=== PATIENT | female | born 1950 | race Caucasian/White ===

== ENCOUNTER 2019-03-21 14:52 | Observation (INO) ==
[2019-03-21] MEDS ORDERED: IOPAMIDOL 100 ML BOTTLE IV ONE (14:53)
--- NOTE | 2019-03-21 15:11 | Emergency Department Note ---
GI Bleed HPI - General Chief complaint: Rectal Bleed Stated complaint: rectal bleeding, lower abd cramping Time Seen by Provider: 03/21/19 15:00 Source: patient Mode of arrival: ambulatory Limitations: no limitations - History of Present Illness HPI Narrative: 68-year-old female complaining of dominant cramping since yesterday evening approximately 6:30 PM. States the pain has been in the lower abdomen cramping in nature. He had some diarrhea yesterday but there was been no blood there is been no diarrhea today however she try to use the bathroom 1 hour ago and states that there was just blood coming out of the rectal area. She had recently sta rted on an antibiotic, a Z-Corby because of her COPD had just started this just yesterday. She said no history of diverticulitis in the past she is had diverticulosis however. He had a colonoscopy but it has been greater than 5 years. She is on no blood thinners. He does have urinary incontinence which is been a chronic issue she does wear depends all the time. She denies any constipation issues there is been no hematemesis no melena. Denies any urgency frequency or dysuriaPatient states she had bright red blood 1 hour ago - Related Data Home Medications Medication Instructions Recorded Confirmed Albuterol Sulfate [Proair 90 mcg IH PRN PRN 03/27/16 12/04/18 Respiclick] Albuterol Sulfate [Ventolin] 2.5 mg NEB Q4HP PRN 03/27/16 12/04/18 Estradiol [Estrace] 1 mg PO DAILY 03/27/16 12/04/18 Levothyroxine [Synthroid] 25 mcg PO DAILY 03/27/16 12/04/18 Lisinopril [Zestril] 10 mg PO QDAY 03/27/16 12/04/18 QUEtiapine [SEROquel] 150 mg PO QDAY 03/27/16 10/14/18 Venlafaxine [Effexor Xr] 225 mg PO DAILY 03/27/16 12/04/18 montelukast 10 mg tablet 10 mg PO QHS 07/14/17 12/04/18 Medical Marijuana Brownie 1 unit PO QHS 11/18/17 12/04/18 gabapentin 300 mg capsule 300 mg PO QID cap 11/24/17 12/04/18 bupropion HCl SR 100 mg tablet,12 100 mg PO QDAY 04/17/18 12/04/18 hr sustained-release hydromorphone 2 mg tablet 2 mg PO Q6H PRN 04/17/18 12/04/18 Previous Rx's Medication Instructions Recorded fluticasone propionate 50 2 spray INTRANASAL QDAY #16 g 07/14/17 mcg/actuation nasal spray,suspension ipratropium-albuterol 0.5 mg-3 3 ml INHALATION Q6H PRN #180 ml 10/15/17 mg(2.5 mg base)/3 mL nebulization soln budesonide-formoterol HFA 160 2 puff INHALATION BID #10.2 g 10/14/18 mcg-4.5 mcg/actuation aerosol inhaler meclizine 25 mg tablet 25 mg PO BID-TID PRN #30 tab 10/14/18 amoxicillin 500 mg capsule 1,000 mg PO bid #40 cap 12/04/18 clonazePAM [KlonoPIN] 0.5 mg PO HS #10 tab 12/04/18 Allergies Allergy/AdvReac Type Severity Reaction Status Date / Time Diclofenac [From Voltaren] Allergy Severe Anaphylaxis, Verified 03/21/19 14:56 swelling, itching honey Allergy Severe Hives Verified 03/21/19 14:56 ibuprofen Allergy Severe Swelling, Verified 03/21/19 14:56 urticaria, anaphylaxis naproxen Allergy Severe Itching, Verified 03/21/19 14:56 swelling, anaphylaxis morphine Allergy Intermediate Rash Verified 03/21/19 14:56 acetaminophen [From Vicodin] Allergy Mild Rash Verified 03/21/19 14:56 codeine Allergy Mild Hives Verified 03/21/19 14:56 hydrocodone [From Vicodin] Allergy Mild Rash Verified 03/21/19 14:56 metoprolol Allergy Mild Hypotension Verified 03/21/19 14:56 oxycodone [From Percocet] Allergy Mild Rash Verified 03/21/19 14:56 Homatropine Allergy Unknown Unknown Verified 03/21/19 14:56 phenylpropanolamine Allergy Unknown Unknown Verified 03/21/19 14:56 Cocaine Allergy blood Verified 03/21/19 14:56 pressure NSAIDS (Non-Steroidal Allergy Hives Verified 03/21/19 14:56 Anti-Inflamma marionberries Allergy Severe Anaphylaxis Uncoded 12/04/18 13:48 Review of Systems All systems ED: reviewed and negative except as stated. Constitutional: Denies: fever, chills Eyes: Denies: eye pain ENT ED: Denies: ear pain Cardiovascular: Denies: chest pain Respiratory: Denies: shortness of breath Gastrointestinal: Reports: abdominal pain, nausea, vomiting, diarrhea, other Genitourinary: Denies: dysuria, urgency Musculoskeletal: Denies: back pain, joint swelling Past Medical History - Past Medical History PMFSH Narrative: All Active Problems (Last Reviewed 12/04/18 @ 13:48 by Rebecca Sierra PA-C) Postconcussion syndrome (Acute) Cellulitis (Acute) Cat bite (Acute) Gastritis (Acute) Minor head injury (Acute) Occipital scalp laceration (Acute) Acute anxiety (Acute) Encounter for medication refill (Acute) Restless leg syndrome (Acute) Dizziness (Acute) Urinary tract infection (Acute) Cat bite of finger (Acute) Upper respiratory infection (Acute) Bilateral hip pain (Acute) Hammer toes of both feet (Acute) Polyarthralgia (Acute) Ulnar nerve lesion (Chronic) Sleep disturbance (Chronic) Malaise and fatigue (Chronic) Encounter for long-term (current) use of other medications (Chronic) Hyperparathyroidism (Chronic ~1996) Latent tuberculosis (Chronic ~2009) Headache (Chronic) Osteopenia (Chronic) Plantar fasciitis, left (Chronic) Urine incontinence (Chronic) Insulin resistance syndrome (Chronic) Hypertension (Chronic) Asthma (Chronic) Neck pain (Chronic) Impaired fasting glucose (Chronic) Trigeminal neuralgia (Chronic) Depression (Chronic) Hypothyroidism (Chronic) Menopausal syndrome (Chronic) Trochanteric bursitis, right hip (Chronic) Lumbar back pain (Chronic) Lumbar radiculopathy (Chronic) Incontinence, feces (Chronic) Abnormal finding on EKG (Chronic) Mitral regurgitation (Chronic) LVH (left ventricular hypertrophy) (Chronic) Candidiasis (Chronic) Skin infection (Chronic) Rheumatoid arthritis (Chronic) Upper respiratory infection (Acute) Bronchitis (Acute) Asthma with acute exacerbation (Acute) Asthma with exacerbation (Chronic) Low back pain (Chronic) Past Surgical History (Last Reviewed 12/04/18 @ 13:48 by Rebecca Sierra PA-C) History of discectomy (Chronic ~2009) History of parathyroidectomy (Chronic) History of total abdominal hysterectomy (Chronic) Family History (Last Reviewed 12/04/18 @ 13:48 by Rebecca Sierra PA-C) Other No pertinent family history Medical history: Reports: arthritis (Rheumatoid), asthma, COPD, hypertension, migraine, thyroid disease, other Psychiatric history: Reports: no psych history 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 2 C-spine surgeries), tonsillectomy, other (Parathyroid, bladder implant) - Social History smoking status: Former smoker Alcohol use: Reports: Occasionally Drug use: Reports: marijuana Physical Exam Limitations: no limitations General appearance: alert Head: atraumatic, normocephalic Eye: Present: normal appearance, PERRL ENT: normal exam, normal oropharynx, mucous membranes moist Neck: Present: normal inspection, full ROM, trachea midline Chest: Present: normal inspection, symmetric chest wall rise. Absent: tenderness Respiratory: Present: normal lung sounds bilaterally. Absent: respiratory distress, rales/crackles Cardiovascular: Present: regular rate, normal rhythm. Absent: bradycardia, tach ycardia Abdominal: Present: soft, normal bowel sounds. Absent: distention, tenderness, guarding, rebound, rigidity Rectal: Present: normal rectal tone, heme (+) stool, bloody stool Extremities: Present: normal inspection, full ROM. Absent: tenderness Back: Present: normal inspection, full ROM. Absent: tenderness Neurological: Present: alert, oriented X3, CN II-XII intact Psychiatric: Present: normal affect, normal mood Skin: Present: warm, cool, dry Course Vital Signs Temperature 96.8 F L 03/21/19 14:53 Pulse Rate 90 03/21/19 14:53 Respiratory Rate 20 03/21/19 14:53 Blood Pressure 138/79 03/21/19 14:53 Pulse Oximetry (%) 94 03/21/19 14:53 Temperature 96.8 F L 03/21/19 14:53 Pulse Rate 81 03/21/19 19:15 Respiratory Rate 17 03/21/19 19:15 Blood Pressure 190/105 03/21/19 19:01 Pulse Oximetry (%) 94 03/21/19 19:15 GI Bleed - [facility] Narrative Medical decision making narrative: CT was ordered and while coming back from CT she had an episode of wheezing she states she does have a history of asthma and we did give her a DuoNeb which did resolve the wheezing but also gave her Solu-Medrol and Benadryl had no urticaria no flushing she states she gets asthma attacks a lot please it was just due to her asthma. CT showed no evidence of diverticulitisWBC is 9800 the hemoglobin is 13.0 hematocrit 39.3 PT is 12.1 INR 1.0 sodium is 135 potassium 4.1 BUN is 26 the creatinine 1.2 ever function tests were normal. She had a second bowel movement in the ED and did have large amount of blood and clots per Dr. Domínguez contacted and patient to be admitted to hospitalist and he will do the colonoscopy tomorrow.Vital signs have been stable with pulse in the 80s respiratory rate of 15 blood pressure 178/101 pulse ox reading at 97%.. He was given a DuoNeb which did raise her heart rate and blood pressure but her wheezing did resolve. Dr Perdomo consulted and pt will be admitted to observation and colonscopy by Dr Hodges - Lab Data Result diagrams: 03/21/19 15:45 03/21/19 15:45 Lab Results 03/21/19 03/21/19 03/21/19 Range/Units 15:45 15:45 15:45 WBC 9.8 (4.5-11.0) K/mcL RBC 4.28 (4.00-5.20) M/mcL Hgb 13.0 (12.0-15.0) g/dL Hct 39.3 (36.0-48.0) % POC Hct 40.0 (36.0-48.0) % MCV 91.9 (80.0-100.0) fL MCH 30.4 (26.0-34.0) pg MCHC 33.0 (31.0-36.0) g/dL RDW 13.4 (11.5-14.5) % Plt Count 186 (140-440) K/mcL MPV 8.4 (7.4-10.4) fL Gran % 81.2 H (38.0-78.0) % Lymph % (Auto) 7.3 L (15.5-49.0) % [place] % (Auto) 8.6 (1.0-12.0) % Eos % (Auto) 2.5 (0.0-7.0) % Baso % (Auto) 0.4 (0.0-2.0) % Gran # 7.9 (1.8-8.0) K/mcL Lymph # (Auto) 0.7 L (1.5-4.8) K/mcL [place] # (Auto) 0.8 (0.1-0.9) K/mcL Eos # (Auto) 0.2 (0.0-0.7) K/mcL Baso # (Auto) 0 (0.0-0.3) K/mcL POC PT 12.1 (11.9-14.5) sec POC INR 1.0 (0.9-1.2) POC Sodium 135 (133-145) mmol/L Sodium Cancelled POC Potassium 4.1 (3.3-5.1) mmol/L Potassium Cancelled POC Chloride 105 (96-108) mmol/L Chloride Cancelled Carbon Dioxide Cancelled POC Total CO2 20 L (22-30) mmol/L Anion Gap Cancelled POC BUN 26 H (8-23) mg/dl BUN Cancelled Creatinine Cancelled POC Creatinine 1.2 H (0.6-1.1) mg/dl GFR Calculation Cancelled BUN/Creatinine Ratio Cancelled Glucose Cancelled POC Glucose 114 H (70-105) mg/dL Calcium Cancelled POC WB Ioniz Calcium 1.03 L (1.16-1.32) mmol/L Total Bilirubin Cancelled AST Cancelled ALT Cancelled Alkaline Phosphatase Cancelled Total Protein Cancelled Albumin Cancelled Globulin Cancelled Albumin/Globulin Ratio Cancelled Urine Color Urine Appearance Urine pH (5.0-9.0) Ur Specific [place] (1.000-1.035) Urine Protein (NEG) mg/dL Urine Glucose (UA) (NEG) mg/dL Urine Ketones (NEG) mg/dL Urine Occult Blood (<0.03) mg/dL Urine Nitrate (NEG) Urine Bilirubin (NEG) mg/dL Urine Urobilinogen (NEG) mg/dL Ur Leukocyte Esterase (NEG) /uL Urine RBC (0-1) /hpf Urine WBC (0-4) /hpf Ur Squamous Epith Cells (0-4) /hpf Ur Transition Epith Cell (0-2) /hpf Urine Bacteria (0) /hpf Hyaline Casts (0-2) /lpf Other Casts (0) /lpf Ur Culture Indicated? 03/21/19 03/21/19 Range/Units 15:45 16:15 WBC (4.5-11.0) K/mcL RBC (4.00-5.20) M/mcL Hgb (12.0-15.0) g/dL Hct (36.0-48.0) % POC Hct (36.0-48.0) % MCV (80.0-100.0) fL MCH (26.0-34.0) pg MCHC (31.0-36.0) g/dL RDW (11.5-14.5) % Plt Count (140-440) K/mcL MPV (7.4-10.4) fL Gran % (38.0-78.0) % Lymph % (Auto) (15.5-49.0) % [place] % (Auto) (1.0-12.0) % Eos % (Auto) (0.0-7.0) % Baso % (Auto) (0.0-2.0) % Gran # (1.8-8.0) K/mcL Lymph # (Auto) (1.5-4.8) K/mcL [place] # (Auto) (0.1-0.9) K/mcL Eos # (Auto) (0.0-0.7) K/mcL Baso # (Auto) (0.0-0.3) K/mcL POC PT (11.9-14.5) sec POC INR (0.9-1.2) POC Sodium (133-145) mmol/L Sodium 134 POC Potassium (3.3-5.1) mmol/L Potassium 4.1 POC Chloride (96-108) mmol/L Chloride 100 Carbon Dioxide 20 L POC Total CO2 (22-30) mmol/L Anion Gap 14.0 POC BUN (8-23) mg/dl BUN 25 H Creatinine 1.3 H POC Creatinine (0.6-1.1) mg/dl GFR Calculation 42 BUN/Creatinine Ratio Glucose 115 H POC Glucose (70-105) mg/dL Calcium 8.4 L POC WB Ioniz Calcium (1.16-1.32) mmol/L Total Bilirubin 0.6 AST 15 ALT 12 Alkaline Phosphatase 72 Total Protein 6.5 Albumin 3.8 Globulin 2.7 Albumin/Globulin Ratio 1.4 Urine Color Yellow Urine Appearance Hazy Urine pH 5.0 (5.0-9.0) Ur Specific [place] 1.018 (1.000-1.035) Urine Protein Neg (NEG) mg/dL Urine Glucose (UA) Negative (NEG) mg/dL Urine Ketones Neg (NEG) mg/dL Urine Occult Blood 0.2 A (<0.03) mg/dL Urine Nitrate Pos A (NEG) Urine Bilirubin Neg (NEG) mg/dL Urine Urobilinogen Neg (NEG) mg/dL Ur Leukocyte Esterase Neg (NEG) /uL Urine RBC 7 H (0-1) /hpf Urine WBC 2 (0-4) /hpf Ur Squamous Epith Cells 6 H (0-4) /hpf Ur Transition Epith Cell < 1 (0-2) /hpf Urine Bacteria Few A (0) /hpf Hyaline Casts 1 (0-2) /lpf Other Casts Few A (0) /lpf Ur Culture Indicated? 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
[2019-03-21 15:57] LABS: POC Pro Time 12.1 sec (11.9-14.5)
[2019-03-21 15:58] LABS: POC Blood Urea Nitrogen 26 mg/dl (8-23); POC CO2 20 mmol/L (22-30); POC Calcium, Ionized 1.03 mmol/L (1.16-1.32); POC Chloride 105 mmol/L (96-108); POC Creatinine 1.2 mg/dl (0.6-1.1); POC Glucose, Random 114 mg/dL (70-105); POC Potassium 4.1 mmol/L (3.3-5.1); POC Sodium 135 mmol/L (133-145)
[2019-03-21] MEDS ORDERED: 0.9 % SODIUM CHLORIDE 1,000 ML IV ONE ×2 (16:12→18:38)
[2019-03-21 16:21] LABS: Basophils # (Auto) 0 K/mcL (0.0-0.3); Basophils % (Auto) 0.4 % (0.0-2.0); Eosinophils # (Auto) 0.2 K/mcL (0.0-0.7); Eosinophils % (Auto) 2.5 % (0.0-7.0); Granulocytes % (Auto) 81.2 % (38.0-78.0); Hematocrit 39.3 % (36.0-48.0); Lymphocytes # (Auto) 0.7 K/mcL (1.5-4.8); Lymphocytes % (Auto) 7.3 % (15.5-49.0); Mean Cell Volume 91.9 fL (80.0-100.0); Mean Platelet Volume 8.4 fL (7.4-10.4); Monocytes # (Auto) 0.8 K/mcL (0.1-0.9); Monocytes % (Auto) 8.6 % (1.0-12.0); Platelet Count 186 K/mcL (140-440); RBC 4.28 M/mcL (4.00-5.20); Red Cell Distribution Width 13.4 % (11.5-14.5); WBC 9.8 K/mcL (4.5-11.0)
[2019-03-21 16:45] LABS: ALT/SGPT 12 U/l (0-40); AST/SGOT 15 U/l (0-37); Albumin 3.8 gm/dL (3.2-5.2); Albumin/Globulin Ratio 1.4 (1.0-2.3); Alkaline Phosphatase 72 U/L (39-117); Bilirubin,Total 0.6 mg/dL (0.0-1.0); Blood Urea Nitrogen 25 mg/dl (8-23); Calcium 8.4 mg/dl (8.6-10.4); Carbon Dioxide 20 mmol/L (22-30); Chloride 100 mmol/L (96-108); Globulin 2.7 gm/dL (2.2-3.7); Glomerular Filtration Rate 42; Glucose 115 mg/dL (70-105); Potassium 4.1 mmol/L (3.3-5.1); Sodium 134 mmol/L (133-145)
[2019-03-21 17:21] LABS: Appearance,Urine HAZY; Bacteria,Urine FEW /hpf (0); Bilirubin,Urine NEG (NEG); Color,Urine YELLOW; Culture Indicated,Urine NO; Glucose,Urine (UA) NEGATIVE (NEG); Ketones,Urine NEG (NEG); Leukocyte Esterase,Urine NEG /uL (NEG); Nitrate,Urine POS (NEG); Other Casts,Urine FEW /lpf (0); Protein,Urine NEG (NEG); Specific Gravity,Urine 1.018 (1.000-1.035); Urine Blood 0.2 mg/dL (<0.03); Urine Hyaline Cast 1 /lpf (0-2); Urine RBC 7 /hpf (0-1); Urine Squamous Epithelial Cell 6 /hpf (0-4); Urine Transitional Epi Cells < 1 /hpf (0-2); Urine WBC 2 /hpf (0-4); Urobilinogen,Urine NEG (NEG)
[2019-03-21] MEDS ORDERED: IPRATROPIUM/ALBUTEROL 3 ML AMPUL.NEB NEB ONE (18:19)
[2019-03-21] MEDS ORDERED: diphenhydrAMINE 50 MG/ML VIAL IV ONE (18:20)
[2019-03-21] MEDS ORDERED: methylPREDNISolone SOD SUCC 125 MG/2 ML VIAL IV ONE (18:20)
--- NOTE | 2019-03-21 18:35 | Cat Scan Report ---
CLINICAL INFORMATION: Rectal bleeding COMPARISON: None. TECHNIQUE: Following negative enteric contrast, 80 cc of Isovue-300 were injected intravenously, 20 and 60 later, 0.625 mm helical slices were obtained from the mid heart through the subtrochanteric regions. Following reconstruction, 2.5 mm sagittal, coronal and axial reformatted images were processed and reviewed at bone, lung and soft tissue windows. Five minutes later, 0.625 mm helical slices were obtained from the mid heart through the kidneys and viewed at soft tissue windows.The exam was performed using radiation dose optimization techniques including, but not limited to, automated exposure control, adjustment of the mA and/or kV according to patient size and use of iterative reconstruction technique. FINDINGS: Lung bases show no abnormality - no effusion. The visualized heart is normal. Images should the abdomen show minimal fatty change of the liver but no focal lesions. The gallbladder is surgically absent. Common bile duct is normal: The CBD is 5 mm. The 2.6 mm nonobstructing stone inferior calyx of the right kidney - the remaining kidneys, adrenal glands, spleen, pancreas are normal. The aorta is normal in diameter and contour with scattered atherosclerotic plaque. The celiac, SMA, CHARLIE and iliac arteries are branches are widely patent no evidence of thrombus or embolus. No region of angiodysplasia or other focal cause identified for GI blood loss. Images through the pelvis show hysterectomy changes in the urinary bladder is normal. There are multiple sigmoid diverticuli. There is moderate concentric wall thickening of the splenic fracture and entire descending colon with inflammation or edema in the pericolonic fat. The remainder of the transverse, right colon small bowel and stomach are normal. The bone windows show no osseous abnormality IMPRESSION: Moderate concentric wall thickening splenic flexure and descending colon with inflammation or edema in the pericolonic fat. Differential diagnosis includes ischemic bowel disease, infectious or inflammatory bowel disease suggest referral for colonoscopy. Sigmoid diverticulosis, but no evidence of diverticulitis. Interpreted and Authenticated by: Eleazar Carrillo 03/21/19
[2019-03-21] MEDS ORDERED: hydrALAZINE 20 MG/ML VIAL IV PRN ×2 (19:56→20:51)
[2019-03-21] MEDS ORDERED: LABETALOL 5 MG/ML ML IV PRN ×2 (19:56→20:51)
--- NOTE | 2019-03-21 20:00 | Internal Med History&Physical ---
Medical - H&P: [facility] Patient information: Note initiated : 03/21/19 at 7:57 pm Service Date, if different from initiated Date: [] Patient: Raven Collazo a 68 y/o F admitted on for rectal bleeding, lower abd cramping. Chief Complaint: [] History of present illness: Ms. Collazo is a 68 year old F Who is been dealing with a cold with a cough of yellow sputum she went to [facility] and got a Z-Corby. States she has not asthma flare. Has a history of COPD on 4 L oxygen at night. 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 Today she had no another episode of diarrhea and noticed that she had blood clots and her underwear and in the toilet. Came to the ER and had evaluation. Diagnosed with a GI bleed Deandra was contacted. She did have CT of the pelvis with contrast and thereafter she became tachycardic and hypertensive she was given Benadryl and steroids with gradual improvement. No hives. Dr. Liriano plans on scoping her in the morning. She has some nausea but denies any fevers or chills. Abdominal pain is lower quadrant crampy and nonradiating. She feels like she is been dehydrated the past couple days because of her illness. Never had this before. No recent constipation. Review of Systems: Pertinent positives as above. Denies headache/fever/chills/vomiting/chest pain/dyspnea. Remaining 10 point review of system reviewed negative Medical - H&P: [facility] Medical history: Medical History (Last Reviewed 12/04/18 @ 13:48 by Rebecca Sierra PA-C) Bilateral hip pain (Acute) Hammer toes of both feet (Acute) Polyarthralgia (Acute) Ulnar nerve lesion (Chronic) Sleep disturbance (Chronic) Malaise and fatigue (Chronic) Encounter for long-term (current) use of other medications (Chronic) Hyperparathyroidism (Chronic ~1996) Latent tuberculosis (Chronic ~2009) Headache (Chronic) Osteopenia (Chronic) Plantar fasciitis, left (Chronic) Urine incontinence (Chronic) Insulin resistance syndrome (Chronic) Hypertension (Chronic) Asthma (Chronic) Neck pain (Chronic) Impaired fasting glucose (Chronic) Trigeminal neuralgia (Chronic) Depression (Chronic) Hypothyroidism (Chronic) Menopausal syndrome (Chronic) Trochanteric bursitis, right hip (Chronic) Lumbar back pain (Chronic) Lumbar radiculopathy (Chronic) Incontinence, feces (Chronic) Abnormal finding on EKG (Chronic) Mitral regurgitation (Chronic) LVH (left ventricular hypertrophy) (Chronic) Candidiasis (Chronic) Skin infection (Chronic) Rheumatoid arthritis (Chronic) Upper respiratory infection (Acute) Bronchitis (Acute) Asthma with acute exacerbation (Acute) Past Surgical History (Last Reviewed 12/04/18 @ 13:48 by Rebecca Sierra PA-C) History of discectomy (Chronic ~2009) History of parathyroidectomy (Chronic) History of total abdominal hysterectomy (Chronic) Family History (Last Reviewed 12/04/18 @ 13:48 by Rebecca Sierra PA-C) Other Mother had lung cancer Father had emphysema Social History (Last Updated 12/05/18 @ 12:21 by Rebceca Sierra PA-C) Quit smoking 30 years ago drinks 1 to 2 glasses of wine a night lives by herself Medical - H&P: Meds Home Medications Medication Instructions Recorded Confirmed Type Albuterol Sulfate [Proair 90 mcg IH PRN PRN 03/27/16 03/21/19 History Respiclick] Albuterol Sulfate [Ventolin] 2.5 mg NEB Q4HP PRN 03/27/16 03/21/19 History Estradiol [Estrace] 1 mg PO DAILY 03/27/16 03/21/19 History Levothyroxine [Synthroid] 25 mcg PO DAILY 03/27/16 03/21/19 History Lisinopril [Zestril] 10 mg PO QDAY 03/27/16 03/21/19 History QUEtiapine [SEROquel] 150 mg PO QDAY 03/27/16 03/21/19 History Venlafaxine [Effexor Xr] 225 mg PO DAILY 03/27/16 03/21/19 History fluticasone propionate 50 2 spray INTRANASAL QDAY #16 g 07/14/17 03/21/19 Rx mcg/actuation nasal spray,suspension montelukast 10 mg tablet 10 mg PO QHS 07/14/17 03/21/19 History ipratropium-albuterol 0.5 mg-3 3 ml INHALATION Q6H PRN #180 ml 10/15/17 03/21/19 Rx mg(2.5 mg base)/3 mL nebulization soln Medical Marijuana Brownie 1 unit PO QHS 11/18/17 03/21/19 History gabapentin 300 mg capsule 300 mg PO QID cap 11/24/17 03/21/19 History hydromorphone 2 mg tablet 2 mg PO Q6H PRN 04/17/18 03/21/19 History budesonide-formoterol HFA 160 2 puff INHALATION BID #10.2 g 10/14/18 03/21/19 Rx mcg-4.5 mcg/actuation aerosol inhaler meclizine 25 mg tablet 25 mg PO BID-TID PRN #30 tab 10/14/18 03/21/19 Rx clonazePAM [KlonoPIN] 0.5 mg PO HS #10 tab 12/04/18 03/21/19 Rx Allergies Allergy/AdvReac Type Severity Reaction Status Date / Time Diclofenac [From Voltaren] Allergy Severe Anaphylaxis, Verified 03/21/19 14:56 swelling, itching honey Allergy Severe Hives Verified 03/21/19 14:56 ibuprofen Allergy Severe Swelling, Verified 03/21/19 14:56 urticaria, anaphylaxis naproxen Allergy Severe Itching, Verified 03/21/19 14:56 swelling, anaphylaxis morphine Allergy Intermediate Rash Verified 03/21/19 14:56 acetaminophen [From Vicodin] Allergy Mild Rash Verified 03/21/19 14:56 codeine Allergy Mild Hives Verified 03/21/19 14:56 hydrocodone [From Vicodin] Allergy Mild Rash Verified 03/21/19 14:56 metoprolol Allergy Mild Hypotension Verified 03/21/19 14:56 oxycodone [From Percocet] Allergy Mild Rash Verified 03/21/19 14:56 Homatropine Allergy Unknown Unknown Verified 03/21/19 14:56 phenylpropanolamine Allergy Unknown Unknown Verified 03/21/19 14:56 Cocaine Allergy blood Verified 03/21/19 14:56 pressure NSAIDS (Non-Steroidal Allergy Hives Verified 03/21/19 14:56 Anti-Inflamma marionberries Allergy Severe Anaphylaxis Uncoded 12/04/18 13:48 Medical - H&P: Exam - Constitutional Vitals: Temp Pulse Resp BP Pulse Ox 96.8 F L 77 23 H 185/98 98 03/21/19 14:53 03/21/19 19:30 03/21/19 19:30 03/21/19 19:21 03/21/19 19:30 Exam: General: Alert, Awake, No acute Distress Eyes/N/T: EOMI, PEERL, DMM Head/Neck: neck supple, normocephalic atraumatic CV: Mildly tacky but regular, No murmurs, normal s1/s2 Pulm: Mild wheeze on the left expiratory otherwise clear no rhonchi or rales Abd: soft, , +BS x4 tender to palpation lower quadrants Ext: no clubbing/cyanosis/edema Neuro: Alert, no focal deficits, moves all extremities, CN 2-12 grossly intact, symmetrical strength b/l upper/lower, sensations intact b/l upper/lower Skin: warm/dry Medical - H&P: Reslt - Labs CBC & Chem 7: 03/21/19 15:45 03/21/19 15:45 Labs: Short CBC 03/21/19 Range/Units 15:45 WBC 9.8 (4.5-11.0) K/mcL Hgb 13.0 (12.0-15.0) g/dL Hct 39.3 (36.0-48.0) % Plt Count 186 (140-440) K/mcL BMP 03/21/19 03/21/19 15:45 15:45 Sodium Cancelled 134 Potassium Cancelled 4.1 Chloride Cancelled 100 Carbon Dioxide Cancelled 20 L BUN Cancelled 25 H Creatinine Cancelled 1.3 H Glucose Cancelled 115 H Calcium Cancelled 8.4 L Liver Function 03/21/19 03/21/19 Range/Units 15:45 15:45 Total Bilirubin Cancelled 0.6 AST Cancelled 15 ALT Cancelled 12 Alkaline Phosphatase Cancelled 72 Albumin Cancelled 3.8 Urine 03/21/19 Range/Units 16:15 Urine Color Yellow Urine Appearance Hazy Urine pH 5.0 (5.0-9.0) Ur Specific [place] 1.018 (1.000-1.035) Urine Protein Neg (NEG) mg/dL Urine Glucose (UA) Negative (NEG) mg/dL - Impressions CT abdomen pelvis with moderate wall thickening of the splenic flexure descending colon. Medical - H&P: A/P - Narrative A/P Narrative: A: *GI bleed, BRBPR, with abdominal cramping: ?ischemic colitis *Hypertension tachycardia after contrast study: Question allergic reaction *COPD (4L O2@night): *HTN: *Anxiety/depression: *Chronic pain: She says is from her rheumatoid arthritis *Hypothyroidism *SILVINA on CKD III: * P: -Clear liquids, n.p.o. after midnight -IVF -prn BP med -finish home zpak -prn nebs -f/u H&H - -ppx: scd
[2019-03-21] MEDS ORDERED: POLYETHYLENE GLYCOL 3350 17 GM PACKET PO ONE (20:51)
[2019-03-21] MEDS ORDERED: IPRATROPIUM/ALBUTEROL 3 ML AMPUL.NEB NEB PRN (20:51)
[2019-03-21] MEDS ORDERED: HYDROmorphone 2 MG TABLET PO PRN (20:51)
[2019-03-21] MEDS ORDERED: HYDROmorphone 2 MG/ML VIAL IV PRN (20:51)
[2019-03-21] MEDS ORDERED: diphenhydrAMINE 50 MG/ML VIAL IV PRN (20:51)
[2019-03-21] MEDS ORDERED: PANTOPRAZOLE 40 MG VIAL IV SCH (20:51)
[2019-03-21] MEDS ORDERED: MECLIZINE 25 MG TABLET PO PRN (20:51)
[2019-03-21] MEDS ORDERED: ONDANSETRON 4 MG/2 ML VIAL IV PRN (20:51)
[2019-03-21] MEDS ORDERED: PROMETHAZINE 25 MG/ML VIAL IV PRN (20:51)
[2019-03-21] MEDS: GABAPENTIN 300 MG CAPSULE PO SCH (21:36)
[2019-03-21] MEDS: MONTELUKAST 10 MG TABLET PO SCH (21:36)
[2019-03-21] MEDS: clonazePAM 0.5 MG TABLET PO SCH (21:36)
[2019-03-21] MEDS: QUEtiapine 100 MG TABLET PO SCH (21:36)
[2019-03-21] MEDS: SYMBICORT INH SCH (21:39)
[2019-03-21 21:57] LABS: Hematocrit 37.8 % (36.0-48.0); Hemoglobin 12.2 g/dL (12.0-15.0)
[2019-03-21] MEDS: 0.9 % SODIUM CHLORIDE 10 ML SYRINGE IV SCH (21:59)
[2019-03-21] MEDS ORDERED: ESOMEPRAZOLE 40 MG VIAL IV ONE ×2 (22:42→22:44)
[2019-03-21] MEDS ORDERED: AZITHROMYCIN 250 MG TABLET PO ONE (22:43)
[2019-03-21] MEDS ORDERED: 0.9 % SODIUM CHLORIDE 1,000 ML IV SCH (23:50)
[2019-03-22] MEDS: 0.9 % SODIUM CHLORIDE 10 ML SYRINGE IV SCH ×3 (04:31→21:17)
[2019-03-22] MEDS ORDERED: PEG 3350/NA SULF,BICARB,CL/KCL 4,000 ML ORAL.SOL PO ONE (05:30)
[2019-03-22 05:32] LABS: Basophils # (Auto) 0 K/mcL (0.0-0.3); Basophils % (Auto) 0.2 % (0.0-2.0); Eosinophils # (Auto) 0 K/mcL (0.0-0.7); Eosinophils % (Auto) 0 % (0.0-7.0); Granulocytes % (Auto) 94.3 % (38.0-78.0); Hematocrit 36.4 % (36.0-48.0); Hemoglobin 12.1 g/dL (12.0-15.0); Lymphocytes # (Auto) 0.3 K/mcL (1.5-4.8); Lymphocytes % (Auto) 3.4 % (15.5-49.0); Mean Cell Volume 93.1 fL (80.0-100.0); Mean Corpuscular HGB Conc 33.3 g/dL (31.0-36.0); Mean Platelet Volume 8.3 fL (7.4-10.4); Monocytes # (Auto) 0.2 K/mcL (0.1-0.9); Monocytes % (Auto) 2.1 % (1.0-12.0); Platelet Count 153 K/mcL (140-440); RBC 3.91 M/mcL (4.00-5.20); Red Cell Distribution Width 13.3 % (11.5-14.5); WBC 8.6 K/mcL (4.5-11.0)
[2019-03-22 06:09] LABS: ALT/SGPT 10 U/l (0-40); AST/SGOT 14 U/l (0-37); Albumin 3.2 gm/dL (3.2-5.2); Albumin/Globulin Ratio 1.2 (1.0-2.3); Alkaline Phosphatase 64 U/L (39-117); Bilirubin,Direct < 0.2 mg/dL (0.0-0.3); Bilirubin,Total 0.2 mg/dL (0.0-1.0); Blood Urea Nitrogen 16 mg/dl (8-23); Calcium 7.3 mg/dl (8.6-10.4); Carbon Dioxide 19 mmol/L (22-30); Chloride 108 mmol/L (96-108); Globulin 2.7 gm/dL (2.2-3.7); Glomerular Filtration Rate 57; Glucose 168 mg/dL (70-105); Lactate Dehydrogenase 222 U/L (94-250); Phosphorous 3.1 mg/dL (2.7-4.5); Potassium 4.4 mmol/L (3.3-5.1); Sodium 138 mmol/L (133-145); Triglycerides 82 mg/dl (<150); Uric Acid 6.1 mg/dL (2.5-8.0)
[2019-03-22] MEDS: ESOMEPRAZOLE 40 MG VIAL IV SCH ×2 (07:23→17:08)
[2019-03-22] MEDS: LEVOTHYROXINE 25 MCG TABLET PO SCH (07:24)
--- NOTE | 2019-03-22 07:33 | Internal Med Progress Note ---
Medical - PN: Subj Patient information: Note initiated : 03/22/19 at 7:31 am Service Date, if different from initiated Date: [] Patient: Raven Collazo a 68 y/o F admitted on 03/21/19 for rectal bleeding, lower abd cramping. Chief Complaint: [] Interval history: History of present illness: Ms. Collazo is a 68 year old F Who is been dealing with a cold with a cough of yellow sputum she went to [facility] and got a Z-[place]. States she has not asthma flare. Has a history of COPD on 4 L oxygen at night. She went to [facility] to garbage pick up man her antibiotic was there for a while and ended up getting a pizza from [facility] that she brought home started eating and about 630 she had a lower abdominal crampy pain and about an hour after she had diarrhea which she said was dark but did not any notice any blood. Today she had no another episode of diarrhea and noticed that she had blood clots and her underwear and in the toilet. Came to the ER and had evaluation. Diagnosed with a GI bleed Deandra was contacted. She did have CT of the pelvis with contrast and thereafter she became tachycardi c and hypertensive she was given Benadryl and steroids with gradual improvement. No hives. Dr. Liriano plans on scoping her in the morning. She has some nausea but denies any fevers or chills. Abdominal pain is lower quadrant crampy and nonradiating. She feels like she is been dehydrated the past couple days because of her illness. Never had this before. No recent constipation. 03/22 Patient was able to get sleep last night, did not notice any blood. Is undergoing prep. Does have headache and cough from what she says is recent bronchitis but no other complaints. Review of Systems: denies fever/chills/nausea/vomiting/chest or abdominal pain/dyspnea. Otherwise see above. - Constitutional Vitals: Vital Signs Temp Pulse Resp BP Pulse Ox 97.5 F 62 20 126/82 94 03/22/19 07:26 03/22/19 03:46 03/22/19 07:26 03/22/19 07:26 03/22/19 07:26 Period Temp Pulse Resp BP Sys/Ortega Pulse Ox Last 24 Hr 96.8 F-98 F 62-98 08-06 100-190/74-129 91-100 Intake and Output 03/21/19 03/22/19 03/22/19 21:59 05:59 13:59 Intake Total 1999 240 Output Total 850 400 Balance 1999 Weight 92.079 kg 92.079 kg Intake & Output: Intake & Output 03/21/19 03/22/19 03/22/19 21:59 05:59 13:59 Intake Total 1999 240 Output Total 850 400 Balance 1999 Weight 92.079 kg 92.079 kg Intake: IV 1999 Sodium Chloride 0.9% 1,000 ml @ 2000 Wide Open IV BOLUS ONE Rx#: [id number] Oral 240 Output: Void Amount 850 400 Other: Urine Appearance Clear Urine Color Bright Yellow Urine Odor Normal Exam: General: Alert, Awake, No acute Distress Eyes/N/T: EOMI, Head/Neck: neck supple, CV: RRR, No murmurs, Pulm: No wheezing rhonchi's rales Abd: soft, , +BS x4 tender to palpation lower quadrants Ext: no clubbing/cyanosis/edema Neuro: Alert, no focal deficits, moves all extremities, Skin: warm/dry Medical - PN: Obj Da - Labs CBC & Chem 7: 03/22/19 04:12 03/22/19 04:12 Labs: Abnormal Lab Results 03/22/19 03/22/19 03/21/19 04:12 04:12 16:15 RBC 3.91 L Gran % 94.3 H Lymph % (Auto) 3.4 L Gran # 8.1 H Lymph # (Auto) 0.3 L Carbon Dioxide 19 L POC Total CO2 POC BUN BUN Creatinine POC Creatinine Glucose 168 H POC Glucose Calcium 7.3 L POC WB Ioniz Calcium Urine Occult Blood 0.2 A Urine Nitrate Pos A Urine RBC 7 H Ur Squamous Epith Cells 6 H Urine Bacteria Few A Other Casts Few A 03/21/19 03/21/19 03/21/19 15:45 15:45 15:45 RBC Gran % 81.2 H Lymph % (Auto) 7.3 L Gran # Lymph # (Auto) 0.7 L Carbon Dioxide 20 L POC Total CO2 20 L POC BUN 26 H BUN 25 H Creatinine 1.3 H POC Creatinine 1.2 H Glucose 115 H POC Glucose 114 H Calcium 8.4 L POC WB Ioniz Calcium 1.03 L Urine Occult Blood Urine Nitrate Urine RBC Ur Squamous Epith Cells Urine Bacteria Other Casts Meds: Medications Albuterol/Ipratropium (Duoneb) 3 ml NEB Q4HRT PRN PRN Reason: Bronchospasm Azithromycin (Zithromax) 250 mg PO DAILY [facility]; Protocol Stop: 03/25/19 09:01 Clonazepam (Klonopin) 0.5 mg PO HS [facility] Last Admin: 03/21/19 21:36 Dose: 0.5 mg Documented by: Diphenhydramine HCl (Benadryl) 25 mg IV Q4-6HP PRN PRN Reason: Allergic Symptoms Esomeprazole Magnesium (Nexium) 40 mg IV BIDAC [facility] Last Admin: 03/22/19 07:23 Dose: 40 mg Documented by: Estradiol (Estrace) 1 mg PO DAILY [facility] Gabapentin (Neurontin) 300 mg PO QID [facility] Last Admin: 03/21/19 21:36 Dose: 300 mg Documented by: Hydralazine HCl (Apresoline) 0 mg IV Q2HP PRN PRN Reason: Hypertension Hydromorphone HCl (Dilaudid) 0.5 mg IV Q2HP PRN PRN Reason: PAIN LEVEL > 6 Hydromorphone HCl (Dilaudid) 2 mg PO Q6HP PRN PRN Reason: Pain Sodium Chloride (Sodium Chloride 0.9%) 1,000 mls @ 75 mls/hr IV .[id number] [facility] Stop: 03/22/19 13:09 Last Admin: 03/22/19 03:50 Dose: 75 mls/hr Documented by: Labetalol HCl (Trandate) 0 mg IV Q2HP PRN PRN Reason: Hypertension Last Admin: 03/21/19 20:59 Dose: 20 mg Documented by: Levothyroxine Sodium (Synthroid) 25 mcg PO ACB [facility] Last Admin: 03/22/19 07:24 Dose: 25 mcg Documented by: Lisinopril (Zestril) 10 mg PO QDAY [facility] Meclizine HCl (Antivert) 25 mg PO TIDP PRN PRN Reason: dizziness Montelukast Sodium (Singular) 10 mg PO QHS [facility] Last Admin: 03/21/19 21:36 Dose: 10 mg Documented by: Ondansetron HCl (Zofran) 4 mg IV Q6HP PRN PRN Reason: Nausea And Vomiting Symbicort 160-4.5 (Inh) 2 dose INH BID [facility] Last Admin: 03/21/19 21:39 Dose: Not Given Documented by: Promethazine HCl (Phenergan) 12.5 mg IV Q6HP PRN PRN Reason: Nausea And Vomiting Quetiapine Fumarate (Seroquel) 150 mg PO HS [facility] Last Admin: 03/21/19 21:36 Dose: 150 mg Documented by: Sodium Chloride (Saline Flush) 10 ml IV Q8 [facility] Last Admin: 03/22/19 04:31 Dose: Not Given Documented by: Venlafaxine HCl (Effexor Xr) 225 mg PO DAILY [facility] Medical - PN: A/P - Time Spent With Patient Total time spent is greater than 50% in coordination of care (as documented) at patient's floor/unit and/or counseling patient: - Narrative A/P Narrative: A: *GI bleed, BRB[facility], with abdominal cramping: ?ischemic colitis *Hypertension tachycardia after contrast study: Question allergic reaction *COPD (4L O2@night): *HTN: *Anxiety/depression: *Chronic pain: She says is from her rheumatoid arthritis *Hypothyroidism *SILVINA on CKD III: -improved with IVF * P: -npo for endoscopy -IVF finish -prn BP med -finish home zpak -prn nebs -f/u H&H - -ppx: scd Medical - PN: Qual - Stroke Symptom Onset Unknown: No - VTE Deep Vein Thrombosis/Pulmonary Embolism Present on Admission: No
[2019-03-22] MEDS: AZITHROMYCIN 250 MG TABLET PO SCH (08:58)
[2019-03-22] MEDS: ESTRADIOL 1 MG TABLET PO SCH (08:59)
[2019-03-22] MEDS: LISINOPRIL 10 MG TABLET PO SCH (08:59)
[2019-03-22] MEDS: VENLAFAXINE 75 MG CAP.XL.24H PO SCH (08:59)
[2019-03-22] MEDS: GABAPENTIN 300 MG CAPSULE PO SCH ×4 (08:59→21:16)
[2019-03-22] MEDS: SYMBICORT INH SCH ×2 (09:00→21:17)
[2019-03-22] MEDS ORDERED: ACETAMINOPHEN 325 MG TABLET PO PRN (09:13)
[2019-03-22 14:05] LABS: Appearance,Urine CLEAR; Bacteria,Urine 0 /hpf (0); Bilirubin,Urine NEG (NEG); Color,Urine YELLOW; Culture Indicated,Urine NO; Glucose,Urine (UA) NEGATIVE (NEG); Ketones,Urine 5/TR mg/dL (NEG); Leukocyte Esterase,Urine NEG /uL (NEG); Mucus,Urine FEW /hpf (0); Nitrate,Urine NEG (NEG); Protein,Urine 30 mg/dL (NEG); Specific Gravity,Urine 1.026 (1.000-1.035); Urine Blood 0.03 mg/dL (<0.03); Urine Hyaline Cast 14 /lpf (0-2); Urine RBC 3 /hpf (0-1); Urine Squamous Epithelial Cell 3 /hpf (0-4); Urine WBC 2 /hpf (0-4); Urobilinogen,Urine NEG (NEG)
--- NOTE | 2019-03-22 17:37 | Discharge Summary ---
Medical - DS: Prov Patient information: Note initiated : 03/22/19 at 5:35 pm Service Date, if different from initiated Date: [] Patient: Raven Collazo 68 y/o F admitted on 03/21/19 for rectal bleeding, lower abd cramping. Chief Complaint: [] Date of admission: 03/21/19 20:33 Discharge date: 03/23/19 Primary care physician: Francie Murillo Consults: 03/21/19 Consult to Physician [CONS] Stat Comment: Consulting Provider: Lit Morris Reason For Exam: Physician to Consult Consult to Physician [CONS] Stat Comment: Consulting Provider: Kali Perdomo Reason For Exam: Physician to Consult Medical - DS: Meds - Discharge Medications Active and Home Medications: Home Medications Albuterol Sulfate [Proair Respiclick] 90 mcg IH PRN PRN 03/27/16 [History Confirmed 03/21/19 Last Taken 03/21/19] Albuterol Sulfate [Ventolin] 2.5 mg NEB Q4HP PRN 03/27/16 [History Confirmed 03/21/19 Last Taken 03/21/19] Estradiol [Estrace] 1 mg PO DAILY 03/27/16 [History Confirmed 03/21/19 Last Taken 03/20/19] Levothyroxine [Synthroid] 25 mcg PO DAILY 03/27/16 [History Confirmed 03/21/19 Last Taken 03/20/19] Lisinopril [Zestril] 10 mg PO QDAY 03/27/16 [History Confirmed 03/21/19 Last Taken 03/20/19] QUEtiapine [SEROquel] 150 mg PO QDAY 03/27/16 [History Confirmed 03/21/19 Last Taken 03/20/19] Venlafaxine [Effexor Xr] 225 mg PO DAILY 03/27/16 [History Confirmed 03/21/19 Last Taken 03/20/19] fluticasone propionate 50 mcg/actuation nasal spray,suspension 2 spray INTRANASAL QDAY #16 g 07/14/17 [Rx Confirmed 03/21/19 Last Taken 03/06/19] montelukast 10 mg tablet 10 mg PO QHS 07/14/17 [History Confirmed 03/21/19 Last Taken 03/20/19] ipratropium-albuterol 0.5 mg-3 mg(2.5 mg base)/3 mL nebulization soln 3 ml INHALATION Q6H PRN #180 ml 10/15/17 [Rx Confirmed 03/21/19 Last Taken 03/20/19] Medical Marijuana Brownie 1 unit PO QHS 11/18/17 [History Confirmed 03/21/19 Last Taken Unknown] gabapentin 300 mg capsule 300 mg PO QID cap 11/24/17 [History Confirmed Last Taken 03/20/19] hydromorphone 2 mg tablet 2 mg PO Q6H PRN 04/17/18 [History Confirmed 03/21/19 Last Taken 02/08/19] budesonide-formoterol HFA 160 mcg-4.5 mcg/actuation aerosol inhaler 2 puff INHALATION BID #10.2 g 10/14/18 [Rx Confirmed 03/21/19 Last Taken 03/20/19] meclizine 25 mg tablet 25 mg PO BID-TID PRN #30 tab 10/14/18 [Rx Confirmed 03/21/19 Last Taken 03/20/19] clonazePAM [KlonoPIN] 0.5 mg PO HS #10 tab 12/04/18 [Rx Confirmed 03/21/19 Last Taken 03/20/19] Medical - DS: Hosp Hospital course: Mr. Collazo is a 68 year old F Ms. Collazo is a 68 year old F Who is been dealing with a cold with a cough of yellow sputum she went [facility] and got a [facility]-[place]. States she has not asthma flare. Has a history of COPD on 4 L oxygen at night. She went to [facility] to garbage pick up man her antibiotic was there for a while and ended up getting a pizza from [facility] that she brought home started eating and about 630 she had a lower abdominal crampy pain and about an hour after she had diarrhea which she said was dark but did not any notice any blood. Today she had no another episode of diarrhea and noticed that she had blood clots and her underwear and in the toilet. Came to the ER and had evaluation. Diagnosed with a GI bleed Deandra was contacted. She did have CT of the pelvis with contrast and thereafter she became tachycardic and hypertensive she was given Benadryl and steroids with gradual improvement. No hives. Dr. Liriano plans on scoping her in the morning. She has some nausea but denies any fevers or chills. Abdominal pain is lower quadrant crampy and nonradiating. She feels like she is been dehydrated the past couple days because of her illness. Never had this before. No recent constipation. 03/22 Patient was able to get sleep last night, did not notice any blood. Is undergoing prep. Does have headache and cough from what she says is recent bronchitis but no other complaints. She underwent colonoscopy by Dr. Mayen, which showed ischemic colitis. Patient tolerated the procedure well. 03/23 Doing well no issues overnight or bleeding overnight. Patient stable for discharge and follow-up with Mercedes Lopez. Discharge diagnosis: Ischemic colitis bronchitis acute kidney injury Secondary discharge diagnosis: COPD hypertension anxiety depression chronic pain hypothyroidism - Time Spent with Patient Total time spent providing and/or coordinating discharge services: Greater than 30 minutes Medical - DS: Exam - Constitutional Vitals: Vital Signs Temp Pulse Pulse Resp BP BP Pulse Ox 03/22/19 16:00 98.3 F 16 145/84 94 03/22/19 11:18 97.2 F 24 H 159/83 94 03/22/19 08:00 62 20 94 03/22/19 07:26 97.5 F 20 126/82 94 03/22/19 03:46 97.6 F 62 18 119/74 91 03/21/19 23:00 97.7 F 67 16 145/87 96 03/21/19 21:25 97.4 F 63 16 134/78 93 03/21/19 20:38 98 F 84 18 171/86 95 03/21/19 20:26 81 18 94 03/21/19 20:21 80 20 181/98 95 03/21/19 20:01 79 13 177/94 97 03/21/19 19:41 80 19 181/93 97 03/21/19 19:36 84 11 L 188/100 96 03/21/19 19:30 77 23 H 98 03/21/19 19:21 81 21 185/98 96 03/21/19 19:15 81 17 94 03/21/19 19:01 79 25 H 190/105 99 03/21/19 18:58 80 14 97 03/21/19 18:54 81 14 97 03/21/19 18:52 82 15 98 03/21/19 18:50 86 17 171/129 95 03/21/19 18:37 81 15 178/101 97 03/21/19 18:31 79 12 177/100 100 03/21/19 18:22 86 100/78 97 03/21/19 18:20 98 H 24 H Intake and Output 03/22/19 03/22/19 03/22/19 05:59 13:59 21:59 Intake Total 240 Output Total 850 400 800 Balance -610 400 -119 Intake: Oral 240 Output: Void Amount 850 400 Urine/Stool Mix 800 Other: Percent of Meal Consumed NPO Urine Appearance Clear Clear Urine Color Bright Yellow Bright Yellow Urine Odor Normal Normal Stool Size Large Large Stool Color Brown Brown Stool Consistency Liquid Watery # Bowel Movements 1 Weight 92.079 kg Medical - DS: Data Labs on day of discharge: Labs from last 24 hours 03/22/19 03/22/19 03/22/19 13:24 04:12 04:12 WBC 8.6 RBC 3.91 L Hgb 12.1 Hct 36.4 MCV 93.1 MCH 31.0 MCHC 33.3 RDW 13.3 Plt Count 153 MPV 8.3 Gran % 94.3 H Lymph % (Auto) 3.4 L Placer % (Auto) 2.1 Eos % (Auto) 0 Baso % (Auto) 0.2 Gran # 8.1 H Lymph # (Auto) 0.3 L Placer # (Auto) 0.2 Eos # (Auto) 0 Baso # (Auto) 0 Sodium 138 Potassium 4.4 Chloride 108 Carbon Dioxide 19 L Anion Gap 11.0 BUN 16 Creatinine 1.0 GFR Calculation 57 Glucose 168 H Uric Acid 6.1 Calcium 7.3 L Phosphorus 3.1 Magnesium 2.0 Total Bilirubin 0.2 Direct Bilirubin < 0.2 GGT 11 AST 14 ALT 10 Alkaline Phosphatase 64 Lactate Dehydrogenase 222 Total Protein 5.9 Albumin 3.2 Globulin 2.7 Albumin/Globulin Ratio 1.2 Triglycerides 82 Urine Color Yellow Urine Appearance Clear Urine pH 5.0 Ur Specific [place] 1.026 Urine Protein 30 A Urine Glucose (UA) Negative Urine Ketones 5/tr A Urine Occult Blood 0.03 A Urine Nitrate Neg Urine Bilirubin Neg Urine Urobilinogen Neg Ur Leukocyte Esterase Neg Urine RBC 3 H Urine WBC 2 Ur Squamous Epith Cells 3 Urine Bacteria 0 Hyaline Casts 14 H Urine Mucus Few Ur Culture Indicated? No 03/21/19 21:00 WBC RBC Hgb 12.2 Hct 37.8 MCV MCH MCHC RDW Plt Count MPV Gran % Lymph % (Auto) Placer % (Auto) Eos % (Auto) Baso % (Auto) Gran # Lymph # (Auto) Placer # (Auto) Eos # (Auto) Baso # (Auto) Sodium Potassium Chloride Carbon Dioxide Anion Gap BUN Creatinine GFR Calculation Glucose Uric Acid Calcium Phosphorus Magnesium Total Bilirubin Direct Bilirubin GGT AST ALT Alkaline Phosphatase Lactate Dehydrogenase Total Protein Albumin Globulin Albumin/Globulin Ratio Triglycerides Urine Color Urine Appearance Urine pH Ur Specific [place] Urine Protein Urine Glucose (UA) Urine Ketones Urine Occult Blood Urine Nitrate Urine Bilirubin Urine Urobilinogen Ur Leukocyte Esterase Urine RBC Urine WBC Ur Squamous Epith Cells Urine Bacteria Hyaline Casts Urine Mucus Ur Culture Indicated? Preliminary micro results at discharge 03/21/19 18:51 Stool Culture - Preliminary Stool Medical - DS: A/P - Patient/Caregiver Discharge Instructions Activity: increase activity as tolerated Diet: Regular Diet - Follow up Plan Follow up with: Francie Murillo ARNP [Primary Care Provider] - Mercedes Lopez ARNP [Nurse Practitioner] - (f/u 2-3 weeks) Disposition: Home, Self-Care Prognosis: Fair Rehab Potential: Fair Overall status at discharge: patient is back to baseline Medical - DS: Qual - VTE Deep Vein Thrombosis/Pulmonary Embolism Present on Admission: No
[2019-03-22] MEDS ORDERED: BENZONATATE 100 MG CAPSULE PO PRN (17:47)
[2019-03-22] MEDS ORDERED: BENZONATATE 100 MG CAPSULE PO ONE (17:47)
--- NOTE | 2019-03-22 19:37 | Internal Medicine Consult Note ---
Medical - CN: HPI - Data of Consult Patient: new to practice Consult date: 03/22/19 Requesting physician: Kali Perdomo Primary Care Provider: Francie Murillo - Consult Narrative Reason for consult: colitis, abnormal CT, hematochezia History of present illness: Ms. Collazo is a 68 year old F who is admitted for hematochezia and CT suggesting left sided colitis after ingesting pizza and subsequently developing profuse diarrhea followed by hematochezia with clots the following morning. She is current on colon cancer screening. She presented to the emergency department where stool culture and c difficile were taken (results pending) and CT showed thickening of the descending colon and hepatic flexure. She recently completed a course of azithromycin for upper respiratory infection. She has no history of coronary artery disease or hyperlipidemia. She denies any history of clotting disorder. She has a remote history of smoking. She denies any extraintestinal manifestations of IBD but is said to have a history of rheumatoid arthritis. Colonoscopy this afternoon revealed ischemic colitis of the descending colon. CC: Kali Perdomo - Constitutional Constitutional: Present: fatigue, lethargy, malaise. Absent: chills, fever(s) - Gastrointestinal Gastrointestinal: Present: abdominal pain, diarrhea, hematochezia. Absent: constipation, vomiting Medical - CN: PMH Medical history: asthma, hypertension, hyperparathyroidism, rheumatoid arthritis, mitral regurgitation Surgical history: total abdominal hysterectomy, parathyroidectomy, C 4-5 diskectomy Family history: reviewed and not pertinent Social history: Lives alone in [place] Functional capacity: independent ambulation Smoking status: Former smoker Have you smoked in the last 12 months: No Drug use: none Alcohol use: other (1-2 glasses of wine/day) Medical - CN: Meds Home Medications Medication Instructions Recorded Confirmed Type Albuterol Sulfate [Proair 90 mcg IH PRN PRN 03/27/16 03/21/19 History Respiclick] Albuterol Sulfate [Ventolin] 2.5 mg NEB Q4HP PRN 03/27/16 03/21/19 History Estradiol [Estrace] 1 mg PO DAILY 03/27/16 03/21/19 History Levothyroxine [Synthroid] 25 mcg PO DAILY 03/27/16 03/21/19 History Lisinopril [Zestril] 10 mg PO QDAY 03/27/16 03/21/19 History QUEtiapine [Seroquel] 150 mg PO QDAY 03/27/16 03/21/19 History Venlafaxine [Effexor Xr] 225 mg PO DAILY 03/27/16 03/21/19 History fluticasone propionate 50 2 spray INTRANASAL QDAY #16 g 07/14/17 03/21/19 Rx mcg/actuation nasal spray,suspension montelukast 10 mg tablet 10 mg PO QHS 07/14/17 03/21/19 History ipratropium-albuterol 0.5 mg-3 3 ml INHALATION Q6H PRN #180 ml 10/15/17 03/21/19 Rx mg(2.5 mg base)/3 mL nebulization soln Medical Marijuana Brownie 1 unit PO QHS 11/18/17 03/21/19 History gabapentin 300 mg capsule 300 mg PO QID cap 11/24/17 03/21/19 History hydromorphone 2 mg tablet 2 mg PO Q6H PRN 04/17/18 03/21/19 History budesonide-formoterol HFA 160 2 puff INHALATION BID #10.2 g 10/14/18 03/21/19 Rx mcg-4.5 mcg/actuation aerosol inhaler meclizine 25 mg tablet 25 mg PO BID-TID PRN #30 tab 10/14/18 03/21/19 Rx clonazePAM [KlonoPIN] 0.5 mg PO HS #10 tab 12/04/18 03/21/19 Rx Allergies Allergy/AdvReac Type Severity Reaction Status Date / Time Diclofenac [From Voltaren] Allergy Severe Anaphylaxis, Verified 03/21/19 14:56 swelling, itching honey Allergy Severe Hives Verified 03/21/19 14:56 ibuprofen Allergy Severe Swelling, Verified 03/21/19 14:56 urticaria, anaphylaxis naproxen Allergy Severe Itching, Verified 03/21/19 14:56 swelling, anaphylaxis morphine Allergy Intermediate Rash Verified 03/21/19 14:56 codeine Allergy Mild Hives Verified 03/21/19 14:56 hydrocodone [From Vicodin] Allergy Mild Rash Verified 03/21/19 14:56 metoprolol Allergy Mild Hypotension Verified 03/21/19 14:56 oxycodone [From Percocet] Allergy Mild Rash Verified 03/21/19 14:56 Homatropine Allergy Unknown Unknown Verified 03/21/19 14:56 phenylpropanolamine Allergy Unknown Unknown Verified 03/21/19 14:56 Cocaine Allergy blood Verified 03/21/19 14:56 pressure NSAIDS (Non-Steroidal Allergy Hives Verified 03/21/19 14:56 Anti-Inflamma acetaminophen [From Vicodin] AdvReac Mild Rash Verified 03/22/19 09:18 marionberries Allergy Severe Anaphylaxis Uncoded 12/04/18 13:48 Medical - CN: Exam - Constitutional Vitals: Temp Pulse Resp BP Pulse Ox 97.9 F 70 18 120/56 95 03/22/19 17:35 03/22/19 17:35 03/22/19 17:35 03/22/19 17:35 03/22/19 17:35 General appearance: average body habitus, cooperative, no acute distress - Head Head exam: Present: atraumatic, normal inspection, normocephalic - Eye Eye exam: Present: normal appearance - Neck Neck exam: Present: normal inspection - Respiratory Respiratory exam: Present: normal respiratory exam - GI/Abdominal GI/Abdominal exam: Present: normal bowel sounds, soft, tenderness (mild to moderate LLQ tenderness without peritoneal signs). Absent: hernia, mass, organomegaly - Neurological Exam Neurological exam: Present: alert, oriented X3 - Psychiatric Psychiatric exam: Present: normal affect, normal mood Medical - CN: Result - Labs CBC & Chem 7: 03/22/19 04:12 03/22/19 04:12 Labs: Short CBC 03/21/19 03/22/19 Range/Units 21:00 04:12 WBC 8.6 (4.5-11.0) K/mcL Hgb 12.2 12.1 (12.0-15.0) g/dL Hct 37.8 36.4 (36.0-48.0) % Plt Count 153 (140-440) K/mcL BMP 03/22/19 04:12 Sodium 138 Potassium 4.4 Chloride 108 Carbon Dioxide 19 L BUN 16 Creatinine 1.0 Glucose 168 H Calcium 7.3 L Liver Function 03/22/19 Range/Units 04:12 Total Bilirubin 0.2 (0.0-1.0) mg/dL Direct Bilirubin < 0.2 (0.0-0.3) mg/dL GGT 11 (5-36) U/L AST 14 (0-37) U/l ALT 10 (0-40) U/l Alkaline Phosphatase 64 (39-117) U/L Albumin 3.2 (3.2-5.2) gm/dL Urine 03/22/19 Range/Units 13:24 Urine Color Yellow Urine Appearance Clear Urine pH 5.0 (5.0-9.0) Ur Specific [place] 1.026 (1.000-1.035) Urine Protein 30 A (NEG) mg/dL Urine Glucose (UA) Negative (NEG) mg/dL Medical - CN: A/P (1) Ischemic colitis Status: Acute Assessment and plan: We discussed ischemic colitis. It is very likely she had acute infectious enterocolitis, leading to dehydration and hypoperfusion of the colon and subsequent ischemic colitis. We look forward to her stool study results with interest. She is at low risk for recurrence, but all attempts to avoid constipation should be made. We discussed that patients with ischemic colitis sometimes develop sequelae such as strictures, etc, so she should be evaluated if her bowel habit does not return to normal. She is preparing for discharge at this time but will follow up with me in clinic in 2-3 weeks (JEIMY Butts, [facility] [address] [place] [id number], phone [phone]). She appears to understand this plan.
[2019-03-22] MEDS: QUEtiapine 100 MG TABLET PO SCH (21:16)
[2019-03-22] MEDS: clonazePAM 0.5 MG TABLET PO SCH (21:16)
[2019-03-22] MEDS: MONTELUKAST 10 MG TABLET PO SCH (21:16)
[2019-03-22] MEDS ORDERED: AZITHROMYCIN 250 MG TABLET PO ONE (22:43)
[2019-03-23] MEDS: 0.9 % SODIUM CHLORIDE 10 ML SYRINGE IV SCH (05:23)
[2019-03-23] MEDS: LISINOPRIL 10 MG TABLET PO SCH (10:50)
[2019-03-23] MEDS: ESOMEPRAZOLE 40 MG VIAL IV SCH (10:50)
[2019-03-23] MEDS: VENLAFAXINE 75 MG CAP.XL.24H PO SCH (10:50)
[2019-03-23] MEDS: ESTRADIOL 1 MG TABLET PO SCH (10:50)
[2019-03-23] MEDS: AZITHROMYCIN 250 MG TABLET PO SCH (10:51)
[2019-03-23] MEDS: LEVOTHYROXINE 25 MCG TABLET PO SCH (10:51)
[2019-03-23] MEDS: GABAPENTIN 300 MG CAPSULE PO SCH (10:51)
[2019-03-23] MEDS: SYMBICORT INH SCH (10:51)
== END 2019-03-23 11:20 | disposition home or self-care (01) ==
LOC: ED 14:52 → MEDSUR 14:52
PROVIDERS: ADMIT Internal Medicine; ATTEND Internal Medicine

== ENCOUNTER 2019-08-07 10:18 | Inpatient (IN) ==
[2019-08-07] MEDS ORDERED: 0.9 % SODIUM CHLORIDE 1,000 ML IV ONE (10:46)
--- NOTE | 2019-08-07 10:51 | Emergency Department Note ---
Abdominal Pain HPI - General Chief Complaint: Abdominal Pain Stated Complaint: Abdominal cramping, diarrhea, blood in stool Time Seen by Provider: 08/07/19 10:23 Source: patient Mode of arrival: ambulatory Limitations: no limitations - History of Present Illness HPI Narrative: 69-year-old female patient presents emergency Department chief complaint of wo rsening lower abdominal pain, cramping, and blood in her stool. Patient tells me she woke up around 0330 this morning with the abdominal pain. Soon afterward, she developed profuse watery diarrhea. She admits to noticing "bright red" blood mixed in her stool. She has had too many bowel movements to count since symptom onset. She denies ingesting any foul or suspicious foods yesterday. She denies other sick contacts at home with similar symptoms. She has a past history of similar events last summer where she was diagnosed with ischemic bowel. She was told by the GI specialist that the ischemic bowel was associated with dehydration. She has not seen a GI specialist since summer. She admits to some dizziness with changes of position. She admits to headache. She denies systemic fever, sweats, chills. She denies shortness of breath. She denies retrosternal chest pain or palpitations. She denies nausea or vomiting. She admits to recently being treated for UTI with a course of ciprofloxacin. She denies dysuria or hematuria. She denies focal weakness. A review of her active problem list shows the following: Postconcussion syndrome, cellulitis, cat bite, gastritis, acute anxiety, restless leg syndrome, lower GI bleed, ischemic colitis, dizziness, UTI, URI, bilateral hip pain, hammertoes, polyarthralgia, ulnar nerve lesion, hyperparathyroidism, latent tuberculosis, headache, osteopenia, plantar fasciitis, insulin resistance syndrome, hypertension, asthma, neck pain, trigeminal neuralgia, hypothyroidism, menopause, lumbar radiculopathy, mitral regurgitation, candidiasis, rheumatoid arthritis, bronchitis. - Related Data Home Medications Medication Instructions Recorded Confirmed Albuterol Sulfate [Proair 90 mcg IH PRN PRN 03/27/16 03/21/19 Respiclick] Albuterol Sulfate [Ventolin] 2.5 mg NEB Q4HP PRN 03/27/16 03/21/19 Estradiol [Estrace] 1 mg PO DAILY 03/27/16 03/21/19 Levothyroxine [Synthroid] 25 mcg PO DAILY 03/27/16 03/21/19 Lisinopril [Zestril] 10 mg PO QDAY 03/27/16 03/21/19 QUEtiapine [Seroquel] 150 mg PO QDAY 03/27/16 03/21/19 Venlafaxine [Effexor Xr] 225 mg PO DAILY 03/27/16 03/21/19 montelukast 10 mg tablet 10 mg PO QHS 07/14/17 03/21/19 Medical Marijuana Brownie 1 unit PO QHS 11/18/17 03/21/19 gabapentin 300 mg capsule 300 mg PO QID cap 11/24/17 03/21/19 hydromorphone 2 mg tablet 2 mg PO Q6H PRN 04/17/18 03/21/19 Previous Rx's Medication Instructions Recorded fluticasone propionate 50 2 spray INTRANASAL QDAY #16 g 07/14/17 mcg/actuation nasal spray,suspension ipratropium-albuterol 0.5 mg-3 3 ml INHALATION Q6H PRN #180 ml 10/15/17 mg(2.5 mg base)/3 mL nebulization soln budesonide-formoterol HFA 160 2 puff INHALATION BID #10.2 g 10/14/18 mcg-4.5 mcg/actuation aerosol inhaler meclizine 25 mg tablet 25 mg PO BID-TID PRN #30 tab 10/14/18 clonazePAM [KlonoPIN] 0.5 mg PO HS #10 tab 12/04/18 Allergies Allergy/AdvReac Type Severity Reaction Status Date / Time Diclofenac [From Voltaren] Allergy Severe Anaphylaxis, Verified 03/21/19 14:56 swelling, itching honey Allergy Severe Hives Verified 03/21/19 14:56 ibuprofen Allergy Severe Swelling, Verified 03/21/19 14:56 urticaria, anaphylaxis naproxen Allergy Severe Itching, Verified 03/21/19 14:56 swelling, anaphylaxis morphine Allergy Intermediate Rash Verified 03/21/19 14:56 codeine Allergy Mild Hives Verified 03/21/19 14:56 hydrocodone [From Vicodin] Allergy Mild Rash Verified 03/21/19 14:56 metoprolol Allergy Mild Hypotension Verified 03/21/19 14:56 NSAIDS (Non-Steroidal Allergy Mild Hives Verified 03/23/19 07:19 Anti-Inflamma oxycodone [From Percocet] Allergy Mild Rash Verified 03/21/19 14:56 Homatropine Allergy Unknown Unknown Verified 03/21/19 14:56 phenylpropanolamine Allergy Unknown Unknown Verified 03/21/19 14:56 Cocaine Allergy blood Verified 03/21/19 14:56 pressure Iodinated Contrast Media Allergy Verified 08/07/19 11:21 acetaminophen [From Vicodin] AdvReac Mild Rash Verified 03/22/19 09:18 marionberries Allergy Severe Anaphylaxis Uncoded 12/04/18 13:48 Review of Systems All systems ED: reviewed and negative except as stated. Abdominal Pain PMH - Past Medical History Medical history: Reports: arthritis, asthma, COPD, hypertension, migraine, thyroid disease, other Psychiatric history: Reports: no psych history [employer] history: Reports: non-contributory - Social History Smoking status: Former smoker Alcohol use: Reports: Occasionally Drug use: Reports: marijuana Physical Exam Limitations: no limitations General appearance: alert, anxious, grimacing (grimacing during abdominal exam.), in no apparent distress (no acute wrist or distress.), other (does not appear to be feeling well.) Head: atraumatic, normocephalic Eye: Present: normal appearance, PERRL, EOMI. Absent: scleral icterus, conjunctival injection ENT: Present: normal oropharynx, mucous membranes dry Neck: Present: trachea midline. Absent: lymphadenopathy, thyromegaly Chest: Present: symmetric chest wall rise Respiratory: Present: normal lung sounds bilaterally, wheezes (3 wheezing heard throughout chest.), prolonged expiratory phase. Absent: respiratory distress, rales/crackles, stridor, accessory muscle use Cardiovascular: Present: regular rate, normal rhythm. Absent: systolic murmur, diastolic murmur Abdominal: Present: soft, tenderness, hyperactive bowel sounds. Absent: distention, guarding, rebound, rigidity, organomegaly, mass Abdominal tenderness: Present: RLQ, LLQ, moderate Rectal: Present: normal inspection (no gross blood noted), normal rectal tone, heme (+) stool. Absent: fecal impaction, hemorrhoids Extremities: Present: full ROM, normal capillary refill. Absent: pedal edema Back: Absent: CVA tenderness (R), CVA tenderness (L) Neurological: Present: alert, oriented X3, normal gait, reflexes normal. Absent: motor sensory deficit Psychiatric: Present: normal affect, anxious Skin: Present: warm, dry, pallor Course Course Narrative: Patient was brought into the emergency department and a history and physical exam was performed. Saline lock was established laboratory studies were drawn. Orthostatic vital signs were obtained and reviewed. Normal saline was started at 1000 mL bolus. Patient had heme positive stools so an abdominal/pelvic CT scan was ordered without contrast. Patient had a reaction to contrast media last summer. A review of her laboratory studies show the following: CBC essentially within normal limits. Granulocyte percentage 86.4 and granulocyte #8.6. Chemistry panel BUN 27, creatinine 1.5, glucose 127, ionized calcium 1.09, all others a normal limits. Abdominal CT scan without contrast showing sigmoid diverticulosis the radiologist does mention likely associated sigmoid diverticulitis. He noted equivocal wall thickening of the cecum and the pericecal fat suggested a repeat colonoscopy. Radiologist also mentioned that the pathologic infiltration was seen on CT scan 4 months ago of the distal transverse, splenic flexure, and proximal descending segments had resolved. After reviewing all the data I reached out to GI specialist for further guidance on evaluation and treatment. I spoke to the [facility] on-call GI specialist (Dr. Lynne) at this time he did mention that with developing diverticulitis the patient would likely benefit from a brief hospitalization and IV antibiotics. I inquired about needing GI backup and he mentioned that the treatment of diverticulitis is rather straight forward and no GI backup should be necessary. With this in mind, I reached out to our hospitalist (Dr. Carcamo) and discussed the case with him. At this time he has consented to receive the patient in the hospital. He did recommend obtaining a stool sample checking for C. difficile colitis and also starting IV Zosyn. I discussed all these findings with the patient who verbalized understanding. Zosyn was started at 3.375 gram IV. Patient has has not had any bowel movements since being in the emergency department. She is remained stable throughout her entire time in the emergency department and is going to be admitted under the care of the hospitalist (Dr. Carcamo). All further treatment decisions and modalities will be carried out by the hospitalist. Vital Signs Temperature 97.9 F 08/07/19 10:19 Pulse Rate 73 08/07/19 10:19 Respiratory Rate 18 08/07/19 10:19 Blood Pressure 126/81 08/07/19 10:19 Pulse Oximetry (%) 97 08/07/19 10:19 Temperature 97.9 F 08/07/19 10:19 Pulse Rate 70 08/07/19 12:49 Respiratory Rate 18 08/07/19 10:19 Blood Pressure 147/111 08/07/19 13:01 Pulse Oximetry (%) 94 08/07/19 12:49 Abdominal Pain - Lab Data Lab results reviewed: Yes I reviewed the patient's lab results. Result diagrams: 08/07/19 10:57 Lab Results 08/07/19 08/07/19 Range/Units 10:57 10:57 WBC 10.0 (4.5-11.0) K/mcL RBC 4.51 (4.00-5.20) M/mcL Hgb 13.5 (12.0-15.0) g/dL Hct 41.3 (36.0-48.0) % POC Hct 43.0 (36.0-48.0) % MCV 91.4 (80.0-100.0) fL MCH 29.9 (26.0-34.0) pg MCHC 32.7 (31.0-36.0) g/dL RDW 13.1 (11.5-14.5) % Plt Count 205 (140-440) K/mcL MPV 8.2 (7.4-10.4) fL Gran % 86.4 H (38.0-78.0) % Lymph % (Auto) 5.5 L (15.5-49.0) % [place] % (Auto) 7.8 (1.0-12.0) % Eos % (Auto) 0.2 (0.0-7.0) % Baso % (Auto) 0.1 (0.0-2.0) % Gran # 8.6 H (1.8-8.0) K/mcL Lymph # (Auto) 0.6 L (1.5-4.8) K/mcL [place] # (Auto) 0.8 (0.1-0.9) K/mcL Eos # (Auto) 0 (0.0-0.7) K/mcL Baso # (Auto) 0 (0.0-0.3) K/mcL POC Sodium 133 (133-145) mmol/L POC Potassium 5.1 (3.3-5.1) mmol/L POC Chloride 102 (96-108) mmol/L POC Total CO2 23 (22-30) mmol/L POC BUN 27 H (8-23) mg/dl POC Creatinine 1.5 H (0.6-1.1) mg/dl POC Glucose 127 H (70-105) mg/dL POC WB Ioniz Calcium 1.09 L (1.16-1.32) mmol/L - Radiology Data Radiology results reviewed: Yes I reviewed the patient's radiology results. Ordering Physician: Valerio Frost PA-C Date of Service: 08/07/19 Procedure(s): CT abdomen pelvis wo con Accession Number(s): [id number] CLINICAL INFORMATION: Abdominal pain, diarrhea and blood in stool COMPARISON: None. TECHNIQUE: 0.625 mm helical slices were obtained from the mid heart through the subtrochanteric regions. Following reconstruction, 2.5 mm sagittal, coronal and axial reformatted images were processed and reviewed at bone and soft tissue windows.The exam was performed using radiation dose optimization techniques including, but not limited to, automated exposure control, adjustment of the mA and/or kV according to patient size and use of iterative reconstruction technique. FINDINGS: Lung bases show scattered scarring in. There are no infiltrates no effusions. The visualized heart is unremarkable Abdominal images show the gallbladder is surgically absent. Common bile is normal: 6 mm. The noncontrasted liver, adrenal glands, spleen, pancreas and aorta are normal in size, configuration and attenuation without focal lesion. Scattered scarring throughout both kidneys is stable. A 2 mm nonobstructing stone within the inferior calyx of the right kidney is seen. No free air, free fluid or adenopathy Pelvic images show hysterectomy/oophorectomy changes. The urinary bladder is normal. Sigmoid diverticulosis appreciated. There is moderate wall thickening of the proximal one half of the sigmoid colon with inflammation of the perisigmoid fat which could indicate associated diverticulitis. On the previous study, there was pathologic infiltration of the distal transverse , splenic flexure and proximal descending colon, but this has returned to normal. There is equivocal wall thickening of the cecum and equivocal and edema in the the pericecal fat. Appendix is normal. Small bowel and stomach are unremarkable. Bone windows show no osseous abnormality IMPRESSION: 1. Sigmoid diverticulosis. Moderate wall thickening in the proximal and mid sigmoid with inflammation and the perisigmoid fat likely indicate associated sigmoid diverticulitis. 2. Pathologic infiltration of the distal transverse, splenic flexure and proximal descending segments, seen on the comparison CT four months ago, has resolved. 3. Equivocal wall thickening of the cecum and the pericecal fat. Suggest: colonoscopy Interpreted and Authenticated by: Eleazar Carrillo 08/07/19 Disposition Pt seen by [facility]IST[employer] COACH/PA only: Yes Clinical Impression: Diverticulitis Disposition: Xfer As Inpt ([facility] Condition: Fair Additional Instructions: Patient is being admitted to the hospital under the care of the hospitalist (Dr. Carcamo). All further treatment decisions and modalities will be carried out by the hospitalist service. Referrals: Francie Murillo ARNP [Primary Care Provider] - Mercedes Lopez ARNP [Nurse Practitioner] - Time of Disposition: 13:22
[2019-08-07 11:08] LABS: POC Blood Urea Nitrogen 27 mg/dl (8-23); POC CO2 23 mmol/L (22-30); POC Calcium, Ionized 1.09 mmol/L (1.16-1.32); POC Chloride 102 mmol/L (96-108); POC Creatinine 1.5 mg/dl (0.6-1.1); POC Glucose, Random 127 mg/dL (70-105); POC Potassium 5.1 mmol/L (3.3-5.1); POC Sodium 133 mmol/L (133-145)
[2019-08-07 11:40] LABS: Basophils # (Auto) 0 K/mcL (0.0-0.3); Basophils % (Auto) 0.1 % (0.0-2.0); Eosinophils # (Auto) 0 K/mcL (0.0-0.7); Eosinophils % (Auto) 0.2 % (0.0-7.0); Granulocytes % (Auto) 86.4 % (38.0-78.0); Hematocrit 41.3 % (36.0-48.0); Hemoglobin 13.5 g/dL (12.0-15.0); Lymphocytes # (Auto) 0.6 K/mcL (1.5-4.8); Lymphocytes % (Auto) 5.5 % (15.5-49.0); Mean Cell Volume 91.4 fL (80.0-100.0); Mean Corpuscular HGB Conc 32.7 g/dL (31.0-36.0); Mean Platelet Volume 8.2 fL (7.4-10.4); Monocytes # (Auto) 0.8 K/mcL (0.1-0.9); Monocytes % (Auto) 7.8 % (1.0-12.0); Platelet Count 205 K/mcL (140-440); RBC 4.51 M/mcL (4.00-5.20); Red Cell Distribution Width 13.1 % (11.5-14.5)
--- NOTE | 2019-08-07 12:07 | Cat Scan Report ---
CLINICAL INFORMATION: Abdominal pain, diarrhea and blood in stool COMPARISON: None. TECHNIQUE: 0.625 mm helical slices were obtained from the mid heart through the subtrochanteric regions. Following reconstruction, 2.5 mm sagittal, coronal and axial reformatted images were processed and reviewed at bone and soft tissue windows.The exam was performed using radiation dose optimization techniques including, but not limited to, automated exposure control, adjustment of the mA and/or kV according to patient size and use of iterative reconstruction technique. FINDINGS: Lung bases show scattered scarring in. There are no infiltrates no effusions. The visualized heart is unremarkable Abdominal images show the gallbladder is surgically absent. Common bile is normal: 6 mm. The noncontrasted liver, adrenal glands, spleen, pancreas and aorta are normal in size, configuration and attenuation without focal lesion. Scattered scarring throughout both kidneys is stable. A 2 mm nonobstructing stone within the inferior calyx of the right kidney is seen. No free air, free fluid or adenopathy Pelvic images show hysterectomy/oophorectomy changes. The urinary bladder is normal. Sigmoid diverticulosis appreciated. There is moderate wall thickening of the proximal one half of the sigmoid colon with inflammation of the perisigmoid fat which could indicate associated diverticulitis. On the previous study, there was pathologic infiltration of the distal transverse , splenic flexure and proximal descending colon, but this has returned to normal. There is equivocal wall thickening of the cecum and equivocal and edema in the the pericecal fat. Appendix is normal. Small bowel and stomach are unremarkable. Bone windows show no osseous abnormality IMPRESSION: 1. Sigmoid diverticulosis. Moderate wall thickening in the proximal and mid sigmoid with inflammation and the perisigmoid fat likely indicate associated sigmoid diverticulitis. 2. Pathologic infiltration of the distal transverse, splenic flexure and proximal descending segments, seen on the comparison CT four months ago, has resolved. 3. Equivocal wall thickening of the cecum and the pericecal fat. Suggest: colonoscopy Interpreted and Authenticated by: Eleazar Carrillo 08/07/19
[2019-08-07] MEDS ORDERED: PIPERACILLIN SODIUM/TAZOBACTAM 3.375 GM in DEXTROSE 5% IN WATER 50 ML IV ONE (13:13)
--- NOTE | 2019-08-07 14:01 | Internal Med History&Physical ---
Medical - H&P: [facility] Patient information: Note initiated : 08/07/19 at 1:56 pm Service Date, if different from initiated Date: [] Patient: Raven Collazo a 69 y/o F admitted on for Abdominal cramping, diarrhea, blood in stool. Chief Complaint: [] Chief complaint: Abdominal pain, diarrhea History of present illness: Ms. Collazo is a 69 year old F with a history of hypertension/reactive disease of anxiety disorder who presents to the ER along with his friend after experiencing multiple episodes of watery diarrhea that started around 3 AM. Symptoms associated with increased abdominal cramping. She was recently treated with ciprofloxacin for 7 days for UTI. She denies fever chills but endorses to blood in stool this morning. She carries a history of ischemic colitis and she was admitted last year and underwent colonoscopy. She denies being on blood thinner. She denies weight loss/change in stool caliber/lightheadedness dizziness. She denies changes in medications. Initial work-up in the ER was consistent with diverticulitis on abdominal CT along with elevated creatinine from volume depletion. Patient had not had a bowel movement since arrival to the ER. Stool studies could not be performed. Patient was started on antibiotic coverage for diverticulitis. Hospitalist serv ice was consulted after crystalloid administration At the time of evaluation patient is alert and oriented. She feels a lot better. Denies chest palpitation, fever, rash. Endorses to history as above. She lives alone at [facility]. Review of systems a 10 point review system was performed and is negative except for one discussed above Medical - H&P: PMH Medical history: Bilateral hip pain (Acute) Hammer toes of both feet (Acute) Polyarthralgia (Acute) Ulnar nerve lesion (Chronic) Sleep disturbance (Chronic) Malaise and fatigue (Chronic) Encounter for long-term (current) use of other medications (Chronic) Hyperparathyroidism (Chronic ~1996) Latent tuberculosis (Chronic ~2009) Headache (Chronic) Osteopenia (Chronic) Plantar fasciitis, left (Chronic) Urine incontinence (Chronic) Insulin resistance syndrome (Chronic) Hypertension (Chronic) Asthma (Chronic) Neck pain (Chronic) Impaired fasting glucose (Chronic) Trigeminal neuralgia (Chronic) Depression (Chronic) Hypothyroidism (Chronic) Menopausal syndrome (Chronic) Trochanteric bursitis, right hip (Chronic) Lumbar back pain (Chronic) Lumbar radiculopathy (Chronic) Incontinence, feces (Chronic) Abnormal finding on EKG (Chronic) Mitral regurgitation (Chronic) LVH (left ventricular hypertrophy) (Chronic) Candidiasis (Chronic) Skin infection (Chronic) Rheumatoid arthritis (Chronic) Upper respiratory infection (Acute) Bronchitis (Acute) Asthma with acute exacerbation (Acute) Past Surgical History History of discectomy (Chronic ~2009) History of parathyroidectomy (Chronic) History of total abdominal hysterectomy (Chronic) Family History Other Mother had lung cancer Father had emphysema Social History Quit smoking 30 years ago drinks 1 to 2 glasses of wine a night Lives alone in [facility] - H&P: Meds Home Medications Medication Instructions Recorded Confirmed Type Albuterol Sulfate [Proair 90 mcg IH PRN PRN 03/27/16 08/07/19 History Respiclick] Albuterol Sulfate [Ventolin] 2.5 mg NEB Q4HP PRN 03/27/16 08/07/19 History Estradiol [Estrace] 1 mg PO DAILY 03/27/16 08/07/19 History Levothyroxine [Synthroid] 25 mcg PO DAILY 03/27/16 08/07/19 History Lisinopril [Zestril] 10 mg PO QDAY 03/27/16 08/07/19 History QUEtiapine [Seroquel] 150 mg PO HS 03/27/16 08/07/19 History Venlafaxine [Effexor Xr] 225 mg PO DAILY 03/27/16 08/07/19 History fluticasone propionate 50 2 spray INTRANASAL QDAY #16 g 07/14/17 03/21/19 Rx mcg/actuation nasal spray,suspension montelukast 10 mg tablet 10 mg PO QHS 07/14/17 08/07/19 History ipratropium-albuterol 0.5 mg-3 3 ml INHALATION Q6H PRN #180 ml 10/15/17 03/21/19 Rx mg(2.5 mg base)/3 mL nebulization [facility] Medical Marijuana Brownie 1 unit PO QHS 11/18/17 03/21/19 History gabapentin 300 mg capsule 300 mg PO QID cap 11/24/17 08/07/19 History hydromorphone 2 mg tablet 2 mg PO Q6H PRN 04/17/18 03/21/19 History budesonide-formoterol HFA 160 2 puff INHALATION BID #10.2 g 10/14/18 08/07/19 Rx mcg-4.5 mcg/actuation aerosol inhaler clonazePAM [KlonoPIN] 0.5 mg PO HS PRN 08/07/19 08/07/19 History Allergies Allergy/AdvReac Type Severity Reaction Status Date / Time Diclofenac [From Voltaren] Allergy Severe Anaphylaxis, Verified 03/21/19 14:56 swelling, itching honey Allergy Severe Hives Verified 03/21/19 14:56 ibuprofen Allergy Severe Swelling, Verified 03/21/19 14:56 urticaria, anaphylaxis naproxen Allergy Severe Itching, Verified 03/21/19 14:56 swelling, anaphylaxis morphine Allergy Intermediate Rash Verified 03/21/19 14:56 codeine Allergy Mild Hives Verified 03/21/19 14:56 hydrocodone [From Vicodin] Allergy Mild Rash Verified 03/21/19 14:56 metoprolol Allergy Mild Hypotension Verified 03/21/19 14:56 NSAIDS (Non-Steroidal Allergy Mild Hives Verified 03/23/19 07:19 Anti-Inflamma oxycodone [From Percocet] Allergy Mild Rash Verified 03/21/19 14:56 Homatropine Allergy Unknown Unknown Verified 03/21/19 14:56 phenylpropanolamine Allergy Unknown Unknown Verified 03/21/19 14:56 Cocaine Allergy blood Verified 03/21/19 14:56 pressure Iodinated Contrast Media Allergy Verified 08/07/19 11:21 acetaminophen [From Vicodin] AdvReac Mild Rash Verified 03/22/19 09:18 marionberries Allergy Severe Anaphylaxis Uncoded 12/04/18 13:48 Medical - H&P: Exam - Constitutional Vitals: Temp Pulse Resp BP Pulse Ox 97.9 F 70 18 164/93 94 08/07/19 10:19 08/07/19 12:49 08/07/19 10:19 08/07/19 13:16 08/07/19 12:49 General appearance: no acute distress Exam: Alert and oriented Head normocephalic Oral cavity dry no ear nose discharge Eye movement symmetrical Neck no lymphadenopathy or bruit S1-S2 regular rhythm no murmur Diminished breath sounds bases Abdomen soft minimally tender left lower quadrant nondistended Skin no suspicious lesion lower extremity no cyanosis clubbing no joint swelling or erythema psych alert cooperative Neuro nonfocal Medical - H&P: Reslt - Labs CBC & Chem 7: 08/07/19 10:57 Labs: Short CBC 08/07/19 Range/Units 10:57 WBC 10.0 (4.5-11.0) K/mcL Hgb 13.5 (12.0-15.0) g/dL Hct 41.3 (36.0-48.0) % Plt Count 205 (140-440) K/mcL Medical - H&P: A/P (1) Diverticulitis Current visit: Yes Status: Acute * Acute sigmoid diverticulitis- Inpatient admits/IV antibiotics/bowel rest/clears/surgery consult * Mild SILVINA Baseline creatinine 1, current creatinine 1.5. Secondary to volume depletion from diarrhea. Continue crystalloids. * Diarrhea rule out C. difficile, likely secondary to diverticulitis. * Abdominal pain on as needed pain medications * Reactive disease continue bronchodilators * Anxiety disorder continue clonazepam/Effexor/Seroquel * Hypertension restart antihypertensives once clinically stable and systolics over 140 * Hypothyroidism continue thyroxine * Neuropathy continue gabapentin * Chronic pain on home dose hydromorphone * Full code * Prophylaxis heparin Plan * Inpatient admission * Antibiotic coverage * Stool studies/C. difficile * Monitor renal function * Prior medical condition management on home meds * PT OT/patient support * Surgery consult if clinically deteriorating * Discharge planning
[2019-08-07] MEDS ORDERED: MAGNESIUM SULFATE 2 GM/50 ML BAG IV PRN (15:09)
[2019-08-07] MEDS ORDERED: NITROGLYCERIN 0.4 MG TAB.SUBL SL PRN (15:09)
[2019-08-07] MEDS ORDERED: POTASSIUM CHLORIDE 20 MEQ PACKET PO PRN (15:09)
[2019-08-07] MEDS ORDERED: HYDROmorphone 2 MG/ML VIAL IV PRN (15:09)
[2019-08-07] MEDS ORDERED: ONDANSETRON 4 MG/2 ML VIAL IV PRN (15:09)
[2019-08-07] MEDS ORDERED: IPRATROPIUM/ALBUTEROL 3 ML AMPUL.NEB NEB ONE (15:18)
[2019-08-07] MEDS: IPRATROPIUM/ALBUTEROL 3 ML AMPUL.NEB NEB SCH ×3 (15:25→23:11)
[2019-08-07] MEDS: metroNIDAZOLE 500 MG/100 ML BAG IV SCH ×2 (16:05→21:30)
[2019-08-07] MEDS: LACTATED RINGERS 1,000 ML IV SCH (17:04)
[2019-08-07] MEDS: 0.9 % SODIUM CHLORIDE 10 ML SYRINGE IV SCH ×2 (17:04→21:22)
[2019-08-07] MEDS: PIPERACILLIN SODIUM/TAZOBACTAM 3.375 GM in DEXTROSE 5% IN WATER 50 ML IV SCH ×2 (17:05→23:20)
[2019-08-07] MEDS: BUDESONIDE 0.5 MG/2 ML AMPUL.NEB NEB SCH (19:04)
[2019-08-07] MEDS ORDERED: clonazePAM 0.5 MG TABLET PO PRN (20:11)
[2019-08-07] MEDS ORDERED: ALBUTEROL SULFATE INH PRN (20:11)
[2019-08-07] MEDS ORDERED: hydrALAZINE 20 MG/ML VIAL IV PRN (20:12)
[2019-08-07] MEDS ORDERED: HEPARIN 5,000 UNIT/ML VIAL SQ SCH (21:00)
[2019-08-07] MEDS ORDERED: MELATONIN 3 MG TABLET PO PRN (21:00)
[2019-08-07] MEDS ORDERED: LISINOPRIL 10 MG TABLET PO ONE (21:07)
[2019-08-07] MEDS: SENNOSIDES/DOCUSATE SODIUM 1 TAB TABLET PO SCH (21:19)
[2019-08-07] MEDS: QUEtiapine 100 MG TABLET PO SCH (21:20)
[2019-08-07] MEDS: DOCUSATE SODIUM 100 MG CAPSULE PO SCH (21:20)
[2019-08-07] MEDS: MONTELUKAST 10 MG TABLET PO SCH (21:20)
[2019-08-07] MEDS: CYANOCOBALAMIN (VITAMIN B-12) 500 MCG TABLET PO SCH (21:21)
[2019-08-07] MEDS: SYMBICORT INH SCH (21:21)
[2019-08-07] MEDS: GABAPENTIN 300 MG CAPSULE PO SCH (21:21)
[2019-08-07] MEDS ORDERED: LACTATED RINGERS 500 ML IV SCH (23:45)
[2019-08-07] MEDS ORDERED: LACTATED RINGERS 500 ML IV ONE (23:55)
[2019-08-08] MEDS: LACTATED RINGERS 1,000 ML IV SCH ×2 (00:57→12:49)
[2019-08-08] MEDS: ACETAMINOPHEN 325 MG TABLET PO PRN (02:41)
[2019-08-08] MEDS: IPRATROPIUM/ALBUTEROL 3 ML AMPUL.NEB NEB SCH ×2 (02:42→07:24)
[2019-08-08] MEDS: metroNIDAZOLE 500 MG/100 ML BAG IV SCH (05:05)
[2019-08-08 05:38] LABS: Hematocrit 32.7 % (36.0-48.0); Hemoglobin 10.8 g/dL (12.0-15.0); Mean Cell Volume 92.4 fL (80.0-100.0); Mean Corpuscular HGB Conc 32.9 g/dL (31.0-36.0); Mean Platelet Volume 8.4 fL (7.4-10.4); Platelet Count 138 K/mcL (140-440); RBC 3.54 M/mcL (4.00-5.20); Red Cell Distribution Width 13.1 % (11.5-14.5); WBC 6.6 K/mcL (4.5-11.0)
[2019-08-08] MEDS: PIPERACILLIN SODIUM/TAZOBACTAM 3.375 GM in DEXTROSE 5% IN WATER 50 ML IV SCH ×4 (06:12→23:27)
[2019-08-08 06:34] LABS: ALT/SGPT 10 U/l (0-40); AST/SGOT 16 U/l (0-37); Albumin 2.6 gm/dL (3.2-5.2); Alkaline Phosphatase 55 U/L (39-117); Bilirubin,Direct < 0.2 mg/dL (0.0-0.3); Bilirubin,Total 0.3 mg/dL (0.0-1.0); Blood Urea Nitrogen 18 mg/dl (8-23); Calcium 7.6 mg/dl (8.6-10.4); Carbon Dioxide 20 mmol/L (22-30); Chloride 104 mmol/L (96-108); Globulin 2.5 gm/dL (2.2-3.7); Glomerular Filtration Rate 35; Glucose 154 mg/dL (70-105); Lactate Dehydrogenase 201 U/L (94-250); Phosphorous 3.9 mg/dL (2.7-4.5); Triglycerides 160 mg/dl (<150); Uric Acid 4.7 mg/dL (2.5-8.0)
[2019-08-08 06:44] LABS: Band Neutrophils % 2 % (0-10); Lymphocytes % 10 % (15-49); Metamyelocytes % 1 % (0-0); Monocytes % (Manual) 7 % (1-12); Platelet Estimate DECREASED (NORMAL); RBC Morphology NORMAL (NORMAL); Segmented Neutrophils % 80 % (38-78)
[2019-08-08] MEDS: BUDESONIDE 0.5 MG/2 ML AMPUL.NEB NEB SCH (07:24)
[2019-08-08] MEDS: VENLAFAXINE 75 MG CAP.XL.24H PO SCH (08:28)
[2019-08-08] MEDS: 0.9 % SODIUM CHLORIDE 10 ML SYRINGE IV SCH ×3 (08:28→20:54)
[2019-08-08] MEDS: ESTRADIOL 1 MG TABLET PO SCH (08:29)
[2019-08-08] MEDS: MULTIVIT,THER IRON,CA,FA & MIN 1 TABLET PO SCH (08:29)
[2019-08-08] MEDS: THIAMINE 100 MG TABLET PO SCH (08:30)
[2019-08-08] MEDS: GABAPENTIN 300 MG CAPSULE PO SCH ×4 (08:30→20:54)
[2019-08-08] MEDS: DOCUSATE SODIUM 100 MG CAPSULE PO SCH ×2 (08:30→20:54)
[2019-08-08] MEDS: FOLIC ACID 1 MG TABLET PO SCH (08:30)
[2019-08-08] MEDS: SYMBICORT INH SCH ×2 (08:31→20:49)
[2019-08-08] MEDS ORDERED: LEVOTHYROXINE 25 MCG TABLET PO SCH (09:00)
[2019-08-08] MEDS ORDERED: LISINOPRIL 10 MG TABLET PO SCH (09:00)
--- NOTE | 2019-08-08 09:34 | Internal Med Progress Note ---
Medical - PN: Subj Patient information: Note initiated : 08/08/19 at 9:32 am Service Date, if different from initiated Date: [] Patient: Raven Collazo a 69 y/o F admitted on 08/07/19 for Abdominal cramping, diarrhea, blood in stool. Chief Complaint: [] Interval history: Ms. Collazo is a 69 year old F with a history of hypertension/reactive disease of anxiety disorder who presents to the ER along with his friend after experiencing multiple episodes of watery diarrhea that started around 3 AM. Symptoms associated with increased abdominal cramping. She was recently treated with ciprofloxacin for 7 days for UTI. She denies fever chills but endorses to blood in stool this morning. She carries a history of ischemic colitis and she was admitted last year and underwent colonoscopy. She denies being on blood th inner. She denies weight loss/change in stool caliber/lightheadedness dizziness. She denies changes in medications. Initial work-up in the ER was consistent with diverticulitis on abdominal CT along with elevated creatinine from volume depletion. Patient had not had a bowel movement since arrival to the ER. Stool studies could not be performed. Patient was started on antibiotic coverage for diverticulitis. Hospitalist service was consulted after crystalloid administration At the time of evaluation patient is alert and oriented. She feels a lot better. Denies chest palpitation, fever, rash. Endorses to history as above. She lives alone at [facility]. 08/08-past a few bloody clots however diarrhea improved. No overnight fever chills. Abdominal pain discomfort improved. Currently on clears. On antibiotic coverage. Blood pressure dropped from 160s to low 80s. Antihyperte nsives on hold. White count 6000. Creatinine 1.5. Now on room air. Sitting on chair. Stool studies pending. - Constitutional Vitals: Vital Signs Temp Pulse Resp BP Pulse Ox 97.7 F 66 14 94/54 98 08/08/19 07:55 08/08/19 07:55 08/08/19 07:55 08/08/19 07:55 08/08/19 07:55 Period Temp Pulse Resp BP Sys/Ortega Pulse Ox Last 24 Hr 97.5 F-97.9 F 55-106 14-20 72-184/46-118 91-100 Intake and Output 08/07/19 08/08/1908/08/19 21:59 05:59 13:59 Intake Total 1020 1388 1000 Output Total 700 250 875 Balance 320 1138 125 Weight 199 lb Intake & Output: Intake & Output 08/07/19 08/08/19 08/08/19 21:59 05:59 13:59 Intake Total 1020 1388 1000 Output Total 700 250 875 Balance 320 1138 125 Weight 199 lb Intake: IV 200 938 650 Lactated Ringers 500 ml @ Wide 788 500 Open IV BOLUS ONE Rx#: [id number] Zosyn 3.375 gm In Dextrose 5% 100 50 50 in Water 50 ml @ 100 mls/hr IV Q6H [facility] Rx#:[id number] Oral 820 450 350 Output: Void Amount 700 250 875 Other: Meal Dinner Breakfast Percent of Meal Consumed 100% 100% Feeding Ability Assist with Tray Set Up Assist with Tray Set Up Urine Appearance Clear Clear Clear Urine Color Straw Bright Yellow Dark Yellow Urine Odor Normal Normal Stool Size Small Stool Color Brown Blood Tinged Stool Consistency Soft Formed General appearance: no acute distress Exam: Sitting in chair Alert and oriented Nonlabored breathing Minimal abdominal discomfort suprapubic/left lower quadrant Medical - PN: Obj Da - Labs CBC & Chem 7: 08/08/19 04:20 08/08/19 04:20 Labs: Abnormal Lab Results 08/08/19 08/08/19 08/07/19 04:20 04:20 10:57 RBC 3.54 L Hgb 10.8 L Hct 32.7 L Plt Count 138 L Gran % Lymph % (Auto) Gran # Lymph # (Auto) Seg Neutrophils % 80 H Lymphocytes % 10 L Metamyelocytes % 1 H Carbon Dioxide 20 L POC BUN 27 H Creatinine 1.5 H POC Creatinine 1.5 H Glucose 154 H POC Glucose 127 H Calcium 7.6 L POC WB Ioniz Calcium 1.09 L Total Protein 5.1 L Albumin 2.6 L Triglycerides 160 H 08/07/19 10:57 RBC Hgb Hct Plt Count Gran % 86.4 H Lymph % (Auto) 5.5 L Gran # 8.6 H Lymph # (Auto) 0.6 L Seg Neutrophils % Lymphocytes % Metamyelocytes % Carbon Dioxide POC BUN Creatinine POC Creatinine Glucose POC Glucose Calcium POC WB Ioniz Calcium Total Protein Albumin Triglycerides Meds: Medications Acetaminophen (Tylenol) 650 mg PO Q4-6HP PRN; Protocol PRN Reason: Per Pain Protocol/Fever > 101 Last Admin: 08/08/19 02:41 Dose: 650 mg Documented by: Albuterol Sulfate (Ventolin) 2.5 mg NEB Q4HP PRN PRN Reason: Shortness Of Breath Or Wheezing Albuterol/Ipratropium (Duoneb) 3 ml NEB Q4HRT [facility] Last Admin: 08/08/19 07:24 Dose: 3 ml Documented by: Budesonide (Pulmicort) 0.5 mg NEB Q12 [facility] Last Admin: 08/08/19 07:24 Dose: 0.5 mg Documented by: Clonazepam (Klonopin) 0.5 mg PO HSP PRN PRN Reason: unknown Cyanocobalamin (Vitamin B-12) 1,000 mcg PO BID [facility] Stop: 08/12/19 09:01 Last Admin: 08/07/19 21:21 Dose: 1,000 mcg Documented by: Docusate Sodium (Colace) 100 mg PO BID [facility] Last Admin: 08/08/19 08:30 Dose: 100 mg Documented by: Estradiol (Estrace) 1 mg PO DAILY [facility] Last Admin: 08/08/19 08:29 Dose: 1 mg Documented by: Folic Acid (Folic Acid) 1 mg PO DAILY [facility] Last Admin: 08/08/19 08:30 Dose: 1 mg Documented by: Gabapentin (Neurontin) 300 mg PO QID [facility] Last Admin: 08/08/19 08:30 Dose: 300 mg Documented by: Hydralazine HCl (Apresoline) 20 mg IV Q4-6HP PRN PRN Reason: Hypertension Hydromorphone HCl (Dilaudid) 0 mg IV Q4HP PRN; Protocol PRN Reason: Per Pain Protocol Lactated Ringer's (Lactated Ringers) 1,000 mls @ 100 mls/hr IV .Q10H [facility] Stop: 08/08/19 21:08 Last Admin: 08/08/19 00:57 Dose: 100 mls/hr Documented by: Magnesium Sulfate (Magnesium Sulfate) 2 gm in 50 mls @ 50 mls/hr IV UD PRN PRN Reason: MG = or < 1.7 Piperacillin Sod/Tazobactam (Sod 3.375 gm/ Dextrose) 50 mls @ 100 mls/hr IV Q6H [facility]; Protocol Last Infusion: 08/08/19 06:42 Dose: Infused Documented by: Metronidazole (Flagyl) 500 mg in 100 mls @ 100 mls/hr IV Q8H [facility]; Protocol Last Infusion: 08/08/19 06:05 Dose: Infused Documented by: Iron Carb/Multivit/Senath/Folic Acid (Multivitamin W/Minerals) 1 tab PO DAILY [facility] Last Admin: 08/08/19 08:29 Dose: 1 tab Documented by: Levothyroxine Sodium (Synthroid) 25 mcg PO ACB JANETTE Melatonin (Melatonin 3mg Tablet) 3 mg PO HSP PRN PRN Reason: Insomnia Montelukast Sodium (Singular) 10 mg PO QHS [facility] Last Admin: 08/07/19 21:20 Dose: 10 mg Documented by: Nitroglycerin (Nitrostat) 0.4 mg SL Q5M PRN PRN Reason: Chest Pain Ondansetron HCl (Zofran) 4 mg IV Q4-6HP PRN; Protocol PRN Reason: Nausea And Vomiting Albuterol Sulfate [ Proair Respiclick] Inh 1 dose INH Q4HP PRN PRN Reason: Wheezing Symbicort 160-4.5mcg (Inh) 2 dose INH BID [facility] Last Admin: 08/08/19 08:31 Dose: Not Given Documented by: Potassium Chloride (Klor-Con) 40 meq PO DAILYP PRN PRN Reason: K+ < 3.5 Quetiapine Fumarate (Seroquel) 150 mg PO [facility] Last Admin: 08/07/19 21:20 Dose: 150 mg Documented by: Senna/Docusate Sodium (Senna Plus Tablet) 1 tab PO [facility] Last Admin: 08/07/19 21:19 Dose: 1 tab Documented by: Sodium Chloride (Saline Flush) 10 ml IV Q8 [facility] Last Admin: 08/08/19 08:28 Dose: 10 ml Documented by: Thiamine HCl (Vitamin B1) 100 mg PO DAILY [facility] Last Admin: 08/08/19 08:30 Dose: 100 mg Documented by: Venlafaxine HCl (Effexor Xr) 225 mg PO DAILY [facility] Last Admin: 08/08/19 08:28 Dose: 225 mg Documented by: Medical - PN: A/P - Time Spent With Patient Total time spent is greater than 50% in coordination of care (as documented) at patient's floor/unit and/or counseling patient: 25 - 35 minutes (1) Diverticulitis Status: Acute Assessment and plan: * Acute sigmoid diverticulitis versus ischemic colitis-continue bowel rest/supportive management. On antibiotic coverage. White count normalized. * Mild SILVINA Baseline creatinine 1, creatinine at 1.5. Secondary to volume d epletion from diarrhea. Continue crystalloids. * Diarrhea with volume depletion-await stool studies. * Hypotension hold antihypertensives until systolics around 140. * Abdominal pain improved on as needed pain medications * Reactive disease continue home dose bronchodilators * Anxiety disorder continue clonazepam/Effexor/Seroquel * Hypertension meds on hold in light of hypotension * Hypothyroidism continue thyroxine * Neuropathy continue gabapentin * Chronic pain on home dose hydromorphone * Full code * Prophylaxis heparin Plan * Bowel rest/clears * Await stool studies/C. difficile * Continue monitor renal function * Prior medical condition management on home meds * PT OT/patient support * Discharge planning Current Visit: Yes Medical - PN: Qual - Stroke Symptom Onset Unknown: No - VTE Deep Vein Thrombosis/Pulmonary Embolism Present on Admission: No
[2019-08-08] MEDS: LEVOTHYROXINE 25 MCG TABLET PO SCH (10:39)
[2019-08-08] MEDS: CYANOCOBALAMIN (VITAMIN B-12) 500 MCG TABLET PO SCH ×2 (10:39→20:54)
--- NOTE | 2019-08-08 14:31 | General Surgery Consult Note ---
History of Present Illness Patient information: Note initiated : 08/08/19 at 2:29 pm Service Date, if different from initiated Date: [] Patient: Raven Collazo 69 y/o F admitted on 08/07/19 for Abdominal cramping, diarrhea, blood in stool. Chief Complaint: [] Reason for consult: abdominal pain Requesting physician: Nawaf Masters History of present illness: 69-year-old female admitted with hematochezia and crampy abdominal pain. The patient had onset of diarrhea about 3 AM on yesterday. She had severe crampy pain that continued for many hours with multiple diarrheal stools. This was followed by multiple episodes of bloody diarrhea. Because of the bleeding she was seen in the emergency room where evaluation shows changes in her left: Suggestive of ischemic colitis. She had a similar episode in March of this year. She had a colonoscopy at that time which was compatible with ischemic colitis. She states that her pain is better at this time. She has less bleeding. Her hemoglobin is stable. Review of Systems All systems PM: reviewed and no additional remarkable complaints except as stated (negative except as noted above and below) - Constitutional anorexia, fever(s), headache(s), malaise, weakness - EENT Nose, mouth and throat: abnormal hearing, dizziness, headache(s) - Cardiovascular dyspnea on exertion, palpatations - Respiratory dyspnea on exertion, wheezing - Gastrointestinal abdominal pain, bloating, change in bowel habits, hematochezia, nausea - Genitourinary Genitourinary: urinary incontinence - Musculoskeletal arthralgias, back pain, myalgias - Integumentary no non-healing lesions, no pruritus, no rash - Psychiatric abnormal sleep pattern - Endocrine fatigue - Hematologic/Lymphatic no easy bleeding, no easy bruising, no lymphadenopathy - Allergic/Immunologic no tongue swelling, no throat swelling, no uticaria, no wheezing, no lip swelling Past History Past medical history: Hypertension Depression Hypothyroidism Rheumatoid arthritis Ischemic colitis Chronic obstructive lung disease Chronic kidney disease 3 Past surgical history: Cervical spine surgery 2 with discectomy Parathyroidectomy Hysterectomy Cholecystectomy Left arthroscopy with meniscectomy Cystocele rectocele repair Left shoulder surgery Past family history: Mother complications of lung cancer Father complications of chronic obstructive lung disease Past social history: Drinks wine daily Former smoker Occasional marijuana use Medications and Allergies Home Medications Medication Instructions Recorded Confirmed Type Albuterol Sulfate [Proair 90 mcg IH PRN PRN 03/27/16 08/07/19 History Respiclick] Albuterol Sulfate [Ventolin] 2.5 mg NEB Q4HP PRN 03/27/16 08/07/19 History Estradiol [Estrace] 1 mg PO DAILY 03/27/16 08/07/19 History Levothyroxine [Synthroid] 25 mcg PO DAILY 03/27/16 08/07/19 History Lisinopril [Zestril] 10 mg PO QDAY 03/27/16 08/07/19 History QUEtiapine [Seroquel] 150 mg PO HS 03/27/16 08/07/19 History Venlafaxine [Effexor Xr] 225 mg PO DAILY 03/27/16 08/07/19 History fluticasone propionate 50 2 spray INTRANASAL QDAY #16 g 07/14/17 08/08/19 Rx mcg/actuation nasal spray,suspension montelukast 10 mg tablet 10 mg PO QHS 07/14/17 08/07/19 History gabapentin 300 mg capsule 300 mg PO QID cap 11/24/17 08/07/19 History budesonide-formoterol HFA 160 2 puff INHALATION BID #10.2 g 10/14/18 08/07/19 Rx mcg-4.5 mcg/actuation aerosol inhaler clonazePAM [KlonoPIN] 0.5 mg PO HS PRN 08/07/19 08/07/19 History Allergies Allergy/AdvReac Type Severity Reaction Status Date / Time honey Allergy Severe Hives Verified 03/21/19 14:56 NSAIDS (Non-Steroidal Allergy Severe Anaphylaxis Verified 08/08/19 07:27 Anti-Inflamma codeine Allergy Mild Hives Verified 03/21/19 14:56 Homatropine Allergy Unknown Unknown Verified 03/21/19 14:56 phenylpropanolamine Allergy Unknown Unknown Verified 03/21/19 14:56 Iodinated Contrast Media Allergy Verified 08/07/19 11:21 acetaminophen [From Vicodin] AdvReac Mild Rash Verified 03/22/19 09:18 hydrocodone [From Vicodin] AdvReac Mild Rash Verified 08/08/19 07:25 metoprolol AdvReac Mild Hypotension Verified 08/08/19 07:25 morphine AdvReac Mild Rash Verified 08/08/19 07:25 oxycodone [From Percocet] AdvReac Mild Rash Verified 08/08/19 07:25 Cocaine AdvReac blood Verified 08/08/19 07:25 pressure marionberries Allergy Severe Anaphylaxis Uncoded 12/04/18 13:48 Exam Temp Pulse Resp BP Pulse Ox 98.6 F 72 16 166/96 98 08/08/19 11:48 08/08/19 11:48 08/08/19 11:48 08/08/19 12:15 08/08/19 11:48 - General physical appearance well developed, well nourished, no distress - Eyes PERRL, normal ocular movement - ENT normal pinna, normal nares, normal mucosa, no congestion, decreased hearing (w ears hearing aids) - Head Head exam IM: Present: atraumatic, normocephalic - Neck no masses, no bruits, trachea midline, no lymphadenopathy, no venous distension - Cardiovascular Cardiovascular exam IM: Present: normal rate and rhythm, RRR, +S1, +S2. Absent: JVD, tachycardia - Respiratory normal expansion, normal respiratory effort, clear to auscultation - Abdomen Abdomen: Present: soft, tender (tenderness left lower quadrant and hypogastric; moderate distention; hyperactive bowel sounds), bowel sounds Hernia: Present: none - Genitourinary Present: normal external genitalia - Integumentary Present: no rash, no growths, no abnormal pigmentation - Neurologic Present: normal coordination, normal sensation - Musculoskeletal Present: normal gait, normal posture - Psychiatric Present: oriented to time, oriented to person, oriented to place, speech is normal, memory intact Results - Labs 08/08/19 04:20 08/08/19 04:20 Abnormal lab results 08/08/19 08/08/19 Range/Units 04:20 04:20 RBC 3.54 L (4.00-5.20) M/mcL Hgb 10.8 L (12.0-15.0) g/dL Hct 32.7 L (36.0-48.0) % Plt Count 138 L (140-440) K/mcL Seg Neutrophils % 80 H (38-78) % Lymphocytes % 10 L (15-49) % Metamyelocytes % 1 H (0-0) % Carbon Dioxide 20 L (22-30) mmol/L Creatinine 1.5 H (0.6-1.1) mg/dl Glucose 154 H (70-105) mg/dL Calcium 7.6 L (8.6-10.4) mg/dl Total Protein 5.1 L (5.9-8.4) gm/dL Albumin 2.6 L (3.2-5.2) gm/dL Triglycerides 160 H (<150) mg/dl Diabetes panel 08/08/19 Range/Units 04:20 Sodium 136 (133-145) mmol/L Potassium 4.2 (3.3-5.1) mmol/L Chloride 104 (96-108) mmol/L Carbon Dioxide 20 L (22-30) mmol/L BUN 18 (8-23) mg/dl Creatinine 1.5 H (0.6-1.1) mg/dl Glucose 154 H (70-105) mg/dL Calcium 7.6 L (8.6-10.4) mg/dl AST 16 (0-37) U/l ALT 10 (0-40) U/l Alkaline Phosphatase 55 (39-117) U/L Total Protein 5.1 L (5.9-8.4) gm/dL Albumin 2.6 L (3.2-5.2) gm/dL Triglycerides 160 H (<150) mg/dl Calcium panel 08/08/19 Range/Units 04:20 Calcium 7.6 L (8.6-10.4) mg/dl Phosphorus 3.9 (2.7-4.5) mg/dL Albumin 2.6 L (3.2-5.2) gm/dL Pituitary panel 08/08/19 Range/Units 04:20 Sodium 136 (133-145) mmol/L Potassium 4.2 (3.3-5.1) mmol/L Chloride 104 (96-108) mmol/L Carbon Dioxide 20 L (22-30) mmol/L BUN 18 (8-23) mg/dl Creatinine 1.5 H (0.6-1.1) mg/dl Glucose 154 H (70-105) mg/dL Calcium 7.6 L (8.6-10.4) mg/dl Adrenal panel 08/08/19 Range/Units 04:20 Sodium 136 (133-145) mmol/L Potassium 4.2 (3.3-5.1) mmol/L Chloride 104 (96-108) mmol/L Carbon Dioxide 20 L (22-30) mmol/L BUN 18 (8-23) mg/dl Creatinine 1.5 H (0.6-1.1) mg/dl Glucose 154 H (70-105) mg/dL Calcium 7.6 L (8.6-10.4) mg/dl Total Bilirubin 0.3 (0.0-1.0) mg/dL AST 16 (0-37) U/l ALT 10 (0-40) U/l Alkaline Phosphatase 55 (39-117) U/L Total Protein 5.1 L (5.9-8.4) gm/dL Albumin 2.6 L (3.2-5.2) gm/dL All other labs normal. Assessment and Plan (1) Lower GI bleed patient's clinical history and CT findings are compatible with segmental ischemic colitis. She has had this in the past and has recovered. Her present therapy is adequate and she should respond. If she does not respond appropriately then colonoscopy will be needed. She otherwise does not need to have routine colonoscopy at this time. Status: Acute (2) Ischemic colitis Status: Acute (3) Hypertension Status: Chronic (4) Depression Status: Chronic (5) Trochanteric bursitis, right hip Status: Chronic
[2019-08-08] MEDS: SENNOSIDES/DOCUSATE SODIUM 1 TAB TABLET PO SCH (20:54)
[2019-08-08] MEDS: MONTELUKAST 10 MG TABLET PO SCH (20:54)
[2019-08-08] MEDS: QUEtiapine 100 MG TABLET PO SCH (20:54)
[2019-08-09] MEDS: ACETAMINOPHEN 325 MG TABLET PO PRN ×2 (03:04→23:22)
[2019-08-09] MEDS: ALBUTEROL SULFATE 2.5 MG/3 ML NEBULIZER NEB PRN ×2 (03:11→20:41)
[2019-08-09 05:34] LABS: Hemoglobin 10.8 g/dL (12.0-15.0); Mean Corpuscular HGB Conc 32.7 g/dL (31.0-36.0); Mean Platelet Volume 8.4 fL (7.4-10.4); Platelet Count 141 K/mcL (140-440); RBC 3.55 M/mcL (4.00-5.20); WBC 7.2 K/mcL (4.5-11.0)
[2019-08-09] MEDS: PIPERACILLIN SODIUM/TAZOBACTAM 3.375 GM in DEXTROSE 5% IN WATER 50 ML IV SCH (05:50)
[2019-08-09] MEDS: 0.9 % SODIUM CHLORIDE 10 ML SYRINGE IV SCH ×3 (05:50→20:21)
[2019-08-09 05:59] LABS: ALT/SGPT 8 U/l (0-40); AST/SGOT 11 U/l (0-37); Albumin/Globulin Ratio 1.3 (1.0-2.3); Alkaline Phosphatase 56 U/L (39-117); Bilirubin,Direct < 0.2 mg/dL (0.0-0.3); Bilirubin,Total 0.4 mg/dL (0.0-1.0); Blood Urea Nitrogen 9 mg/dl (8-23); Calcium 7.8 mg/dl (8.6-10.4); Carbon Dioxide 24 mmol/L (22-30); Chloride 108 mmol/L (96-108); Globulin 2.4 gm/dL (2.2-3.7); Glomerular Filtration Rate 45; Glucose 129 mg/dL (70-105); Lactate Dehydrogenase 182 U/L (94-250); Triglycerides 70 mg/dl (<150); Uric Acid 3.7 mg/dL (2.5-8.0)
[2019-08-09 06:00] LABS: Phosphorous 2.6 mg/dL (2.7-4.5)
[2019-08-09 06:37] LABS: Eosinophils % (Manual) 1 % (0-7); Lymphocytes % 8 % (15-49); Monocytes % (Manual) 8 % (1-12); Platelet Estimate NORMAL (NORMAL); RBC Morphology NORMAL (NORMAL); Segmented Neutrophils % 83 % (38-78)
[2019-08-09] MEDS: LEVOTHYROXINE 25 MCG TABLET PO SCH (06:49)
[2019-08-09] MEDS: MULTIVIT,THER IRON,CA,FA & MIN 1 TABLET PO SCH (08:15)
[2019-08-09] MEDS: CYANOCOBALAMIN (VITAMIN B-12) 500 MCG TABLET PO SCH ×2 (08:15→20:18)
[2019-08-09] MEDS: GABAPENTIN 300 MG CAPSULE PO SCH ×4 (08:16→20:19)
[2019-08-09] MEDS: FOLIC ACID 1 MG TABLET PO SCH (08:16)
[2019-08-09] MEDS: THIAMINE 100 MG TABLET PO SCH (08:16)
[2019-08-09] MEDS: VENLAFAXINE 75 MG CAP.XL.24H PO SCH (08:16)
[2019-08-09] MEDS: DOCUSATE SODIUM 100 MG CAPSULE PO SCH ×2 (08:16→20:21)
[2019-08-09] MEDS: SYMBICORT INH SCH ×2 (08:17→20:21)
[2019-08-09] MEDS: ESTRADIOL 1 MG TABLET PO SCH (08:17)
--- NOTE | 2019-08-09 09:14 | Internal Med Progress Note ---
Medical - PN: Subj Patient information: Note initiated : 08/09/19 at 9:12 am Service Date, if different from initiated Date: [] Patient: Raven Collazo a 69 y/o F admitted on 08/07/19 for Abdominal cramping, diarrhea, blood in stool. Chief Complaint: [] Interval history: Ms. Collazo is a 69 year old F with a history of hypertension/reactive disease of anxiety disorder who presents to the ER along with his friend after experiencing multiple episodes of watery diarrhea that started around 3 AM. Symptoms associated with increased abdominal cramping. She was recently treated with ciprofloxacin for 7 days for UTI. She denies fever chills but endorses to blood in stool this morning. She carries a history of ischemic colitis and she was admitted last year and underwent colonoscopy. She denies being on blood th inner. She denies weight loss/change in stool caliber/lightheadedness dizziness. She denies changes in medications. Initial work-up in the ER was consistent with diverticulitis on abdominal CT along with elevated creatinine from volume depletion. Patient had not had a bowel movement since arrival to the ER. Stool studies could not be performed. Patient was started on antibiotic coverage for diverticulitis. Hospitalist service was consulted after crystalloid administration At the time of evaluation patient is alert and oriented. She feels a lot better. Denies chest palpitation, fever, rash. Endorses to history as above. She lives alone at [facility]. 08/08-past a few bloody clots however diarrhea improved. No overnight fever chills. Abdominal pain discomfort improved. Currently on clears. On antibiotic coverage. Blood pressure dropped from 160s to low 80s. Antihyperte nsives on hold. White count 6000. Creatinine 1.5. Now on room air. Sitting on chair. Stool studies pending. 08/09-improved diarrhea/abdominal cramping. Ischemic colitis per surgery. Antibiotics discontinued. Continue with diet advancement. Advance to full liquid followed by low residue diet. No overnight fever chills. White count normal. Creatinine improved to 1.2. - Constitutional Vitals: Vital Signs Temp Pulse Resp BP Pulse Ox 97.4 F 64 16 109/71 98 08/09/19 06:49 08/09/19 06:49 08/09/19 07:03 08/09/19 06:49 08/09/19 07:03 Period Temp Pulse Resp BP Sys/Ortega Pulse Ox Last 24 Hr 97.4 F-98.8 F 59-80 12-20 109-188/71-97 93-98 Intake and Output 08/08/19 08/09/19 08/09/19 21:59 05:59 13:59 Intake Total 970 650 50 Output Total 1550 700 Balance -580 -50 50 Weight 201 lb 6.4 oz Intake & Output: Intake & Output 08/08/19 08/09/19 08/09/19 21:59 05:59 13:59 Intake Total 970 650 50 Output Total 1550 700 Balance -580 -50 50 Weight 201 lb 6.4 oz Intake: IV 50 50 50 Zosyn 3.375 gm In Dextrose 5% 50 50 50 in Water 50 ml @ 100 mls/hr IV Q6H [facility] Rx#:[id number] Oral 920 600 Output: Void Amount 1550 700 Other: Meal Dinner Percent of Meal Consumed 100% Urine Appearance Clear Clear Urine Color Bright Yellow Bright Yellow Urine Odor Normal Stool Size Smear Small Stool Color Brown Brown Dark Red Blood # Bowel Movements 1 1 Medical - PN: Obj Da - Labs CBC & Chem 7: 08/09/19 04:20 08/09/19 04:20 Labs: Abnormal Lab Results 08/09/19 08/09/19 08/08/19 04:20 04:20 04:20 RBC 3.55 L Hgb 10.8 L Hct 33.0 L Plt Count Gran % Lymph % (Auto) Gran # Lymph # (Auto) Seg Neutrophils % 83 H Lymphocytes % 8 L Metamyelocytes % Carbon Dioxide 20 L POC BUN Creatinine 1.2 H 1.5 H POC Creatinine Glucose 129 H 154 H POC Glucose Calcium 7.8 L 7.6 L POC WB Ioniz Calcium Phosphorus 2.6 L Total Protein 5.4 L 5.1 L Albumin 3.0 L 2.6 L Triglycerides 160 H 08/08/19 08/07/19 08/07/19 04:20 10:57 10:57 RBC 3.54 L Hgb 10.8 L Hct 32.7 L Plt Count 138 L Gran % 86.4 H Lymph % (Auto) 5.5 L Gran # 8.6 H Lymph # (Auto) 0.6 L Seg Neutrophils % 80 H Lymphocytes % 10 L Metamyelocytes % 1 H Carbon Dioxide POC BUN 27 H Creatinine POC Creatinine 1.5 H Glucose POC Glucose 127 H Calcium POC WB Ioniz Calcium 1.09 L Phosphorus Total Protein Albumin Triglycerides Meds: Medications Acetaminophen (Tylenol) 650 mg PO Q4-6HP PRN; Protocol PRN Reason: Per Pain Protocol/Fever > 101 Last Admin: 08/09/19 03:04 Dose: 650 mg Documented by: Albuterol Sulfate (Ventolin) 2.5 mg NEB Q4HP PRN PRN Reason: Shortness Of Breath Or Wheezing Last Admin: 08/09/19 03:11 Dose: 2.5 mg Documented by: Clonazepam (Klonopin) 0.5 mg PO HSP PRN PRN Reason: unknown Cyanocobalamin (Vitamin B-12) 1,000 mcg PO BID [facility] Stop: 08/12/19 09:01 Last Admin: 08/09/19 08:15 Dose: 1,000 mcg Documented by: Docusate Sodium (Colace) 100 mg PO BID [facility] Last Admin: 08/09/19 08:16 Dose: 100 mg Documented by: Estradiol (Estrace) 1 mg PO DAILY [facility] Last Admin: 08/09/19 08:17 Dose: 1 mg Documented by: Folic Acid (Folic Acid) 1 mg PO DAILY [facility] Last Admin: 08/09/19 08:16 Dose: 1 mg Documented by: Gabapentin (Neurontin) 300 mg PO QID [facility] Last Admin: 08/09/19 08:16 Dose: 300 mg Documented by: Hydromorphone HCl (Dilaudid) 0 mg IV Q4HP PRN; Protocol PRN Reason: Per Pain Protocol Magnesium Sulfate (Magnesium Sulfate) 2 gm in 50 mls @ 50 mls/hr IV UD PRN PRN Reason: MG = or < 1.7 Iron Carb/Multivit/[place]/Folic Acid (Multivitamin W/Minerals) 1 tab PO DAILY [facility] Last Admin: 08/09/19 08:15 Dose: 1 tab Documented by: Levothyroxine Sodium (Synthroid) 25 mcg PO ACB [facility] Last Admin: 08/09/19 06:49 Dose: 25 mcg Documented by: Melatonin (Melatonin 3mg Tablet) 3 mg PO HSP PRN PRN Reason: Insomnia Montelukast Sodium (Singular) 10 mg PO QHS [facility] Last Admin: 08/08/19 20:54 Dose: 10 mg Documented by: Nitroglycerin (Nitrostat) 0.4 mg SL Q5M PRN PRN Reason: Chest Pain Ondansetron HCl (Zofran) 4 mg IV Q4-6HP PRN; Protocol PRN Reason: Nausea And Vomiting Albuterol Sulfate [ Proair Respiclick] Inh 1 dose INH Q4HP PRN PRN Reason: Wheezing Symbicort 160-4.5mcg (Inh) 2 dose INH BID [facility] Last Admin: 08/09/19 08:17 Dose: Not Given Documented by: Potassium Chloride (Klor-Con) 40 meq PO DAILYP PRN PRN Reason: K+ < 3.5 Quetiapine Fumarate (Seroquel) 150 mg PO [facility] Last Admin: 08/08/19 20:54 Dose: 150 mg Documented by: Senna/Docusate Sodium (Senna Plus Tablet) 1 tab PO [facility] Last Admin: 08/08/19 20:54 Dose: 1 tab Documented by: Sodium Chloride (Saline Flush) 10 ml IV Q8 [facility] Last Admin: 08/09/19 05:50 Dose: 10 ml Documented by: Thiamine HCl (Vitamin B1) 100 mg PO DAILY [facility] Last Admin: 08/09/19 08:16 Dose: 100 mg Documented by: Venlafaxine HCl (Effexor Xr) 225 mg PO DAILY [facility] Last Admin: 08/09/19 08:16 Dose: 225 mg Documented by: Medical - PN: A/P - Time Spent With Patient Total time spent is greater than 50% in coordination of care (as documented) at patient's floor/unit and/or counseling patient: 25 - 35 minutes (1) Diverticulitis Status: Acute Assessment and plan: * Acute ischemic colitis-continue bowel rest/supportive management. Start full liquid and advance as tolerated. DC antibiotics. Surgery on board * Mild SILVINA-creatinine improved to 1.2. Secondary to volume depletion from d iarrhea. * Diarrhea with volume depletion-secondary to ischemic colitis. Resolved * Hypotension-resolved with crystalloids * Abdominal pain resolved * Reactive disease continue home dose bronchodilators * Anxiety disorder continue clonazepam/Effexor/Seroquel * Hypertension meds on hold in light of hypotension * Hypothyroidism continue thyroxine * Neuropathy continue gabapentin * Chronic pain on home dose hydromorphone * Full code * Prophylaxis heparin Plan * Full liquid and advance to low residue diet * Prior medical condition management on home meds * PT OT/nutrition support * Discharge planning likely in 48 hours Current Visit: Yes Medical - PN: Qual - Stroke Symptom Onset Unknown: No - VTE Deep Vein Thrombosis/Pulmonary Embolism Present on Admission: No
--- NOTE | 2019-08-09 14:14 | General Surgery Progress Note ---
Subjective Patient reports: feels better, pain is less, tolerating liquids well, flatus, bowel movement, blood in stool, afebrile Narrative: Note initiated : 08/09/19 at 2:11 pm Service Date, if different from initiated Date: [] Patient: Raven Collazo a 69 y/o F admitted on 08/07/19 for Abdominal cramping, diarrhea, blood in stool. Chief Complaint: [patient is significantly improved. She has less bowel movements with some blood-tinged stool. Her crampy abdominal discomfort is significantly improved. If patient remains stable for the next 24 hours she can probably be discharged home and I will follow her up in the office in 1 week with follow-up CT.] Objective Temp Pulse Resp BP Pulse Ox 97.4 F 70 16 117/71 95 08/09/19 12:00 08/09/19 12:00 08/09/19 12:00 08/09/19 12:00 08/09/19 12:00 - Additional Data Intake & Output - Last 24 hours: Intake & Output 08/07/19 08/08/19 08/09/19 08/10/19 05:59 05:59 05:59 05:59 Intake Total 3408 3990 1450 Output Total 950 3850 1300 Balance 2458 140 150 Weight 199 lb 201 lb 6.4 oz - General physical appearance well developed, well nourished, no distress - Eyes PERRL, normal ocular movement - ENT normal pinna, normal nares, normal mucosa, no hearing loss, no congestion - Neck no masses, no bruits, trachea midline, no lymphadenopathy, no venous distension - Respiratory normal expansion, normal respiratory effort, clear to auscultation - Cardiovascular Cardiovascular exam: Present: normal rate and rhythm, RRR, +S1, +S2. Absent: JVD, tachycardia - Abdomen tender (mild tenderness left lower quadrant and hypogastrium; good active bowel sounds) - Integumentary no rash, no growths, no abnormal pigmentation - Neurologic normal coordination, normal sensation - Musculoskeletal normal gait, normal posture - Psychiatric oriented to time, oriented to person, oriented to place, speech is normal, memory intact - Labs 08/09/19 04:20 08/09/19 04:20 Diabetes panel 08/09/19 Range/Units 04:20 Sodium 142 (133-145) mmol/L Potassium 3.9 (3.3-5.1) mmol/L Chloride 108 (96-108) mmol/L Carbon Dioxide 24 (22-30) mmol/L BUN 9 (8-23) mg/dl Creatinine 1.2 H (0.6-1.1) mg/dl Glucose 129 H (70-105) mg/dL Calcium 7.8 L (8.6-10.4) mg/dl AST 11 (0-37) U/l ALT 8 (0-40) U/l Alkaline Phosphatase 56 (39-117) U/L Total Protein 5.4 L (5.9-8.4) gm/dL Albumin 3.0 L (3.2-5.2) gm/dL Triglycerides 70 (<150) mg/dl Calcium panel 08/09/19 Range/Units 04:20 Calcium 7.8 L (8.6-10.4) mg/dl Phosphorus 2.6 L (2.7-4.5) mg/dL Albumin 3.0 L (3.2-5.2) gm/dL Pituitary panel 08/09/19 Range/Units 04:20 Sodium 142 (133-145) mmol/L Potassium 3.9 (3.3-5.1) mmol/L Chloride 108 (96-108) mmol/L Carbon Dioxide 24 (22-30) mmol/L BUN 9 (8-23) mg/dl Creatinine 1.2 H (0.6-1.1) mg/dl Glucose 129 H (70-105) mg/dL Calcium 7.8 L (8.6-10.4) mg/dl Adrenal panel 08/09/19 Range/Units 04:20 Sodium 142 (133-145) mmol/L Potassium 3.9 (3.3-5.1) mmol/L Chloride 108 (96-108) mmol/L Carbon Dioxide 24 (22-30) mmol/L BUN 9 (8-23) mg/dl Creatinine 1.2 H (0.6-1.1) mg/dl Glucose 129 H (70-105) mg/dL Calcium 7.8 L (8.6-10.4) mg/dl Total Bilirubin 0.4 (0.0-1.0) mg/dL AST 11 (0-37) U/l ALT 8 (0-40) U/l Alkaline Phosphatase 56 (39-117) U/L Total Protein 5.4 L (5.9-8.4) gm/dL Albumin 3.0 L (3.2-5.2) gm/dL Assessment and Plan (1) Lower GI bleed Status: Acute Current Visit: No (2) Ischemic colitis Status: Acute Assessment and plan: Patient is clinically improved and can probably be discharged in 24-48 hours with follow-up CT in 1 week and I will see her in the office as an outpatient. Current Visit: No (3) Hypertension Status: Chronic Current Visit: No (4) Depression Status: Chronic Current Visit: No (5) Trochanteric bursitis, right hip Status: Chronic Current Visit: No - Time Spent With Patient Total time spent is greater than 50% in coordination of care (as documented) at patient's floor/unit and/or counseling patient:
[2019-08-09] MEDS: QUEtiapine 100 MG TABLET PO SCH (20:19)
[2019-08-09] MEDS: MONTELUKAST 10 MG TABLET PO SCH (20:19)
[2019-08-09] MEDS: SENNOSIDES/DOCUSATE SODIUM 1 TAB TABLET PO SCH (20:20)
[2019-08-10 05:30] LABS: Hematocrit 32.3 % (36.0-48.0); Hemoglobin 10.6 g/dL (12.0-15.0); Mean Cell Volume 92.9 fL (80.0-100.0); Mean Corpuscular HGB Conc 32.8 g/dL (31.0-36.0); Mean Platelet Volume 8.6 fL (7.4-10.4); Platelet Count 146 K/mcL (140-440); RBC 3.48 M/mcL (4.00-5.20); Red Cell Distribution Width 12.9 % (11.5-14.5); WBC 4.3 K/mcL (4.5-11.0)
[2019-08-10] MEDS: 0.9 % SODIUM CHLORIDE 10 ML SYRINGE IV SCH ×3 (05:53→20:25)
[2019-08-10 06:11] LABS: ALT/SGPT 10 U/l (0-40); AST/SGOT 12 U/l (0-37); Albumin 2.7 gm/dL (3.2-5.2); Alkaline Phosphatase 59 U/L (39-117); Bilirubin,Direct < 0.2 mg/dL (0.0-0.3); Bilirubin,Total 0.2 mg/dL (0.0-1.0); Calcium 7.8 mg/dl (8.6-10.4); Carbon Dioxide 23 mmol/L (22-30); Chloride 107 mmol/L (96-108); Globulin 2.6 gm/dL (2.2-3.7); Glomerular Filtration Rate 57; Glucose 82 mg/dL (70-105); Lactate Dehydrogenase 173 U/L (94-250); Phosphorous 2.9 mg/dL (2.7-4.5); Triglycerides 114 mg/dl (<150); Uric Acid 3.9 mg/dL (2.5-8.0)
[2019-08-10 06:12] LABS: Blood Urea Nitrogen 7 mg/dl (8-23)
[2019-08-10 06:19] LABS: Eosinophils % (Manual) 3 % (0-7); Lymphocytes % 26 % (15-49); Monocytes % (Manual) 7 % (1-12); Platelet Estimate NORMAL (NORMAL); RBC Morphology NORMAL (NORMAL); Segmented Neutrophils % 64 % (38-78)
[2019-08-10] MEDS: LEVOTHYROXINE 25 MCG TABLET PO SCH (06:57)
--- NOTE | 2019-08-10 09:24 | Internal Med Progress Note ---
Medical - PN: Subj Patient information: Note initiated : 08/10/19 at 9:22 am Service Date, if different from initiated Date: [] Patient: Raven Collazo a 69 y/o F admitted on 08/07/19 for Abdominal cramping, diarrhea, blood in stool. Chief Complaint: [] Interval history: Ms. Collazo is a 69 year old F with a history of hypertension/reactive disease of anxiety disorder who presents to the ER along with his friend after experiencing multiple episodes of watery diarrhea that started around 3 AM. Symptoms associated with increased abdominal cramping. She was recently treated with ciprofloxacin for 7 days for UTI. She denies fever chills but endorses to blood in stool this morning. She carries a history of ischemic colitis and she was admitted last year and underwent colonoscopy. She denies being on blood th inner. She denies weight loss/change in stool caliber/lightheadedness dizziness. She denies changes in medications. Initial work-up in the ER was consistent with diverticulitis on abdominal CT along with elevated creatinine from volume depletion. Patient had not had a bowel movement since arrival to the ER. Stool studies could not be performed. Patient was started on antibiotic coverage for diverticulitis. Hospitalist service was consulted after crystalloid administration At the time of evaluation patient is alert and oriented. She feels a lot better. Denies chest palpitation, fever, rash. Endorses to history as above. She lives alone at [facility]. 08/08-past a few bloody clots however diarrhea improved. No overnight fever chills. Abdominal pain discomfort improved. Currently on clears. On antibiotic coverage. Blood pressure dropped from 160s to low 80s. Antihyperte nsives on hold. White count 6000. Creatinine 1.5. Now on room air. Sitting on chair. Stool studies pending. 08/09-improved diarrhea/abdominal cramping. Ischemic colitis per surgery. Antibiotics discontinued. Continue with diet advancement. Advance to full liquid followed by low residue diet. No overnight fever chills. White count normal. Creatinine improved to 1.2. 04/09= improved abdominal cramping/pain. No further episode of bloody stool. Tolerating clears and advancing to low residue diet. No fever chills. Off antibiotics. Start aspirin 81 mg. No overnight fever chills or concerns per staff. Anticipate discharge in 24 hours pending clinical improvement and advancement of diet - Constitutional Vitals: Vital Signs Temp Pulse Resp BP Pulse Ox 98 F 72 14 102/63 98 08/10/19 03:46 08/10/19 08:18 08/10/19 08:18 08/10/19 03:46 08/10/19 08:18 Period Temp Pulse Resp BP Sys/Ortega Pulse Ox Last 24 Hr 97.4 F-98.8 F 70-84 14-18 102-172/60-97 94-98 Intake and Output 08/09/19 08/10/19 08/10/19 21:59 05:59 13:59 Intake Total 400 Output Total 750 350 Balance -350 -350 Weight 202 lb 12.8 oz Intake & Output: Intake & Output 08/09/19 08/10/19 08/10/19 21:59 05:59 13:59 Intake Total 400 Output Total 750 350 Balance -350 -350 Weight 202 lb 12.8 oz Intake: Oral 400 Output: Void Amount 750 350 Other: Meal Dinner Percent of Meal Consumed 100% Urine Appearance Clear Urine Color Straw Urine Odor Normal Stool Size Moderate Stool Color Brown Stool Consistency Liquid # Voids 1 # of times incontinent of 2 Bowels General appearance: no acute distress Exam: Alert oriented Nonlabored breathing No anxiety Nondistended abdomen Medical - PN: Obj Da - Labs CBC & Chem 7: 08/10/19 04:15 08/10/19 04:15 Labs: Abnormal Lab Results 08/10/19 08/10/19 08/09/19 04:15 04:15 04:20 WBC 4.3 L RBC 3.48 L Hgb 10.6 L Hct 32.3 L Plt Count Gran % Lymph % (Auto) Gran # Lymph # (Auto) Seg Neutrophils % Lymphocytes % Metamyelocytes % Carbon Dioxide POC BUN BUN 7 L Creatinine 1.2 H POC Creatinine Glucose 129 H POC Glucose Calcium 7.8 L 7.8 L POC WB Ioniz Calcium Phosphorus 2.6 L Total Protein 5.3 L 5.4 L Albumin 2.7 L 3.0 L Triglycerides 08/09/19 08/08/19 08/08/19 04:20 04:20 04:20 WBC RBC 3.55 L 3.54 L Hgb 10.8 L 10.8 L Hct 33.0 L 32.7 L Plt Count 138 L Gran % Lymph % (Auto) Gran # Lymph # (Auto) Seg Neutrophils % 83 H 80 H Lymphocytes % 8 L 10 L Metamyelocytes % 1 H Carbon Dioxide 20 L POC BUN BUN Creatinine 1.5 H POC Creatinine Glucose 154 H POC Glucose Calcium 7.6 L POC WB Ioniz Calcium Phosphorus Total Protein 5.1 L Albumin 2.6 L Triglycerides 160 H 08/07/19 08/07/19 10:57 10:57 WBC RBC Hgb Hct Plt Count Gran % 86.4 H Lymph % (Auto) 5.5 L Gran # 8.6 H Lymph # (Auto) 0.6 L Seg Neutrophils % Lymphocytes % Metamyelocytes % Carbon Dioxide POC BUN 27 H BUN Creatinine POC Creatinine 1.5 H Glucose POC Glucose 127 H Calcium POC WB Ioniz Calcium 1.09 L Phosphorus Total Protein Albumin Triglycerides Meds: Medications Acetaminophen (Tylenol) 650 mg PO Q4-6HP PRN; Protocol PRN Reason: Per Pain Protocol/Fever > 101 Last Admin: 08/09/19 23:22 Dose: 650 mg Documented by: Albuterol Sulfate (Ventolin) 2.5 mg NEB Q4HP PRN PRN Reason: Shortness Of Breath Or Wheezing Last Admin: 08/09/19 20:41 Dose: 2.5 mg Documented by: Clonazepam (Klonopin) 0.5 mg PO HSP PRN PRN Reason: unknown Cyanocobalamin (Vitamin B-12) 1,000 mcg PO BID [facility] Stop: 08/12/19 09:01 Last Admin: 08/09/19 20:18 Dose: 1,000 mcg Documented by: Docusate Sodium (Colace) 100 mg PO BID [facility] Last Admin: 08/09/19 20:21 Dose: Not Given Documented by: Estradiol (Estrace) 1 mg PO DAILY [facility] Last Admin: 08/09/19 08:17 Dose: 1 mg Documented by: Folic Acid (Folic Acid) 1 mg PO DAILY [facility] Last Admin: 08/09/19 08:16 Dose: 1 mg Documented by: Gabapentin (Neurontin) 300 mg PO QID [facility] Last Admin: 08/09/19 20:19 Dose: 300 mg Documented by: Hydromorphone HCl (Dilaudid) 0 mg IV Q4HP PRN; Protocol PRN Reason: Per Pain Protocol Magnesium Sulfate (Magnesium Sulfate) 2 gm in 50 mls @ 50 mls/hr IV UD PRN PRN Reason: MG = or < 1.7 Iron Carb/Multivit/[place]/Folic Acid (Multivitamin W/Minerals) 1 tab PO DAILY [facility] Last Admin: 08/09/19 08:15 Dose: 1 tab Documented by: Levothyroxine Sodium (Synthroid) 25 mcg PO ACB [facility] Last Admin: 08/10/19 06:57 Dose: 25 mcg Documented by: Melatonin (Melatonin 3mg Tablet) 3 mg PO HSP PRN PRN Reason: Insomnia Montelukast Sodium (Singular) 10 mg PO QHS [facility] Last Admin: 08/09/19 20:19 Dose: 10 mg Documented by: Nitroglycerin (Nitrostat) 0.4 mg SL Q5M PRN PRN Reason: Chest Pain Ondansetron HCl (Zofran) 4 mg IV Q4-6HP PRN; Protocol PRN Reason: Nausea And Vomiting Last Admin: 08/09/19 15:06 Dose: 4 mg Documented by: Albuterol Sulfate [ Proair Respiclick] Inh 1 dose INH Q4HP PRN PRN Reason: Wheezing Symbicort 160-4.5mcg (Inh) 2 dose INH BID [facility] Last Admin: 08/09/19 20:21 Dose: Not Given Documented by: Potassium Chloride (Klor-Con) 40 meq PO DAILYP PRN PRN Reason: K+ < 3.5 Quetiapine Fumarate (Seroquel) 150 mg PO [facility] Last Admin: 08/09/19 20:19 Dose: 150 mg Documented by: Senna/Docusate Sodium (Senna Plus Tablet) 1 tab PO [facility] Last Admin: 08/09/19 20:20 Dose: Not Given Documented by: Sodium Chloride (Saline Flush) 10 ml IV Q8 [facility] Last Admin: 08/10/19 05:53 Dose: 10 ml Documented by: Thiamine HCl (Vitamin B1) 100 mg PO DAILY [facility] Last Admin: 08/09/19 08:16 Dose: 100 mg Documented by: Venlafaxine HCl (Effexor Xr) 225 mg PO DAILY [facility] Last Admin: 08/09/19 08:16 Dose: 225 mg Documented by: Medical - PN: A/P - Time Spent With Patient Total time spent is greater than 50% in coordination of care (as documented) at patient's floor/unit and/or counseling patient: 25 - 35 minutes (1) Diverticulitis Status: Acute Assessment and plan: * Acute ischemic colitis-clinical improvement noted with bowel rest/supportive management. Advance diet to low residue. Start aspirin * Mild SILVINA-creatinine improved to 1 * Diarrhea with volume depletion-secondary to ischemic colitis. Resolved * Hypotension-resolved with crystalloids * Abdominal pain resolved * Reactive disease continue home dose bronchodilators * Anxiety disorder continue clonazepam/Effexor/Seroquel * Hypertension meds on hold until systolics over 140 * Hypothyroidism continue thyroxine * Neuropathy continue gabapentin * Chronic pain on home dose hydromorphone * Full code * Prophylaxis heparin Plan * Low residue diet * Continue prior medical condition management on home meds * PT OT/nutrition support * Likely discharge in 24 hours Current Visit: Yes Medical - PN: Qual - Stroke Symptom Onset Unknown: No - VTE Deep Vein Thrombosis/Pulmonary Embolism Present on Admission: No
[2019-08-10] MEDS: DOCUSATE SODIUM 100 MG CAPSULE PO SCH ×2 (09:53→20:25)
[2019-08-10] MEDS: THIAMINE 100 MG TABLET PO SCH (09:53)
[2019-08-10] MEDS: GABAPENTIN 300 MG CAPSULE PO SCH ×4 (09:53→20:24)
[2019-08-10] MEDS: ASPIRIN 81 MG TAB.CHEW CHEWED SCH (09:53)
[2019-08-10] MEDS: FOLIC ACID 1 MG TABLET PO SCH (09:53)
[2019-08-10] MEDS: MULTIVIT,THER IRON,CA,FA & MIN 1 TABLET PO SCH (09:53)
[2019-08-10] MEDS: ESTRADIOL 1 MG TABLET PO SCH (09:53)
[2019-08-10] MEDS: SYMBICORT INH SCH ×2 (09:54→20:25)
[2019-08-10] MEDS: VENLAFAXINE 75 MG CAP.XL.24H PO SCH (09:54)
[2019-08-10] MEDS: CYANOCOBALAMIN (VITAMIN B-12) 500 MCG TABLET PO SCH ×2 (09:54→20:24)
--- NOTE | 2019-08-10 12:12 | General Surgery Progress Note ---
Subjective Patient reports: feels better, pain is less, tolerating a regular diet, no flatus, bowel movement, afebrile Narrative: Note initiated : 08/10/19 at 12:09 pm Service Date, if different from initiated Date: [] Patient: Raven Collazo a 69 y/o F admitted on 08/07/19 for Abdominal cramping, diarrhea, blood in stool. Chief Complaint: [Patient continues to improve. Her bowel movements have significantly reduced and she is no longer having rectal bleeding. She has mild pain in her left lower quadrant. She also has mild bloating but is passing flatus without difficulty.] Objective Temp Pulse Resp BP Pulse Ox 98 F 72 14 102/63 98 08/10/19 03:46 08/10/19 08:18 08/10/19 08:18 08/10/19 03:46 08/10/19 08:18 - Additional Data Intake & Output - Last 24 hours: Intake & Output 08/08/19 08/09/19 08/10/19 08/11/19 05:59 05:59 05:59 05:59 Intake Total 3408 3990 1850 Output Total 950 3850 2400 Balance 2458 140 -550 Weight 199 lb 201 lb 6.4 oz 202 lb 12.8 oz - General physical appearance well developed, well nourished, no distress - Eyes PERRL, normal ocular movement - ENT normal pinna, normal nares, normal mucosa, no hearing loss, no congestion - Neck no masses, no bruits, trachea midline, no lymphadenopathy, no venous distension - Respiratory normal expansion, normal respiratory effort, clear to auscultation - Cardiovascular Cardiovascular exam: Present: normal rate and rhythm, RRR, +S1, +S2. Absent: JVD, tachycardia - Abdomen non tender, bowel sounds (present), surgical scars (none), masses (none) - Integumentary no rash, no growths, no abnormal pigmentation - Neurologic normal coordination, normal sensation - Musculoskeletal normal gait, normal posture - Psychiatric oriented to time, oriented to person, oriented to place, speech is normal, memory intact - Labs 08/10/19 04:15 08/10/19 04:15 Diabetes panel 08/10/19 Range/Units 04:15 Sodium 141 (133-145) mmol/L Potassium 3.8 (3.3-5.1) mmol/L Chloride 107 (96-108) mmol/L Carbon Dioxide 23 (22-30) mmol/L BUN 7 L (8-23) mg/dl Creatinine 1.0 (0.6-1.1) mg/dl Glucose 82 (70-105) mg/dL Calcium 7.8 L (8.6-10.4) mg/dl AST 12 (0-37) U/l ALT 10 (0-40) U/l Alkaline Phosphatase 59 (39-117) U/L Total Protein 5.3 L (5.9-8.4) gm/dL Albumin 2.7 L (3.2-5.2) gm/dL Triglycerides 114 (<150) mg/dl Calcium panel 08/10/19 Range/Units 04:15 Calcium 7.8 L (8.6-10.4) mg/dl Phosphorus 2.9 (2.7-4.5) mg/dL Albumin 2.7 L (3.2-5.2) gm/dL Pituitary panel 08/10/19 Range/Units 04:15 Sodium 141 (133-145) mmol/L Potassium 3.8 (3.3-5.1) mmol/L Chloride 107 (96-108) mmol/L Carbon Dioxide 23 (22-30) mmol/L BUN 7 L (8-23) mg/dl Creatinine 1.0 (0.6-1.1) mg/dl Glucose 82 (70-105) mg/dL Calcium 7.8 L (8.6-10.4) mg/dl Adrenal panel 08/10/19 Range/Units 04:15 Sodium 141 (133-145) mmol/L Potassium 3.8 (3.3-5.1) mmol/L Chloride 107 (96-108) mmol/L Carbon Dioxide 23 (22-30) mmol/L BUN 7 L (8-23) mg/dl Creatinine 1.0 (0.6-1.1) mg/dl Glucose 82 (70-105) mg/dL Calcium 7.8 L (8.6-10.4) mg/dl Total Bilirubin 0.2 (0.0-1.0) mg/dL AST 12 (0-37) U/l ALT 10 (0-40) U/l Alkaline Phosphatase 59 (39-117) U/L Total Protein 5.3 L (5.9-8.4) gm/dL Albumin 2.7 L (3.2-5.2) gm/dL Assessment and Plan (1) Lower GI bleed Status: Acute Current Visit: No (2) Ischemic colitis Status: Acute Assessment and plan: Patient is clinically improved . She has minimal discomfort. She no longer has tenderness in the hypogastrium or left lower quadrant. Patient is clinically improved enough that she can probably be discharged home tomorrow. I will follow her up in the office in about [address] of the abdomen and pelvis at that time. Current Visit: No (3) Hypertension Status: Chronic Current Visit: No (4) Depression Status: Chronic Current Visit: No (5) Trochanteric bursitis, right hip Status: Chronic Current Visit: No - Time Spent With Patient Total time spent is greater than 50% in coordination of care (as documented) at patient's floor/unit and/or counseling patient:
[2019-08-10] MEDS: QUEtiapine 100 MG TABLET PO SCH (20:23)
[2019-08-10] MEDS: MONTELUKAST 10 MG TABLET PO SCH (20:23)
[2019-08-10] MEDS: SENNOSIDES/DOCUSATE SODIUM 1 TAB TABLET PO SCH (20:25)
[2019-08-11] MEDS: ACETAMINOPHEN 325 MG TABLET PO PRN (02:07)
[2019-08-11 05:59] LABS: Hematocrit 37.4 % (36.0-48.0); Mean Cell Volume 92.6 fL (80.0-100.0); Mean Corpuscular HGB Conc 32.2 g/dL (31.0-36.0); Mean Platelet Volume 8.4 fL (7.4-10.4); Platelet Count 175 K/mcL (140-440); RBC 4.04 M/mcL (4.00-5.20); Red Cell Distribution Width 13.3 % (11.5-14.5); WBC 5.1 K/mcL (4.5-11.0)
[2019-08-11 06:08] LABS: ALT/SGPT 11 U/l (0-40); AST/SGOT 18 U/l (0-37); Albumin 3.3 gm/dL (3.2-5.2); Albumin/Globulin Ratio 1.1 (1.0-2.3); Alkaline Phosphatase 63 U/L (39-117); Bilirubin,Direct < 0.2 mg/dL (0.0-0.3); Bilirubin,Total 0.2 mg/dL (0.0-1.0); Calcium 8.5 mg/dl (8.6-10.4); Carbon Dioxide 26 mmol/L (22-30); Chloride 102 mmol/L (96-108); Glomerular Filtration Rate 50; Glucose 93 mg/dL (70-105); Lactate Dehydrogenase 223 U/L (94-250); Phosphorous 2.6 mg/dL (2.7-4.5); Triglycerides 165 mg/dl (<150); Uric Acid 4.8 mg/dL (2.5-8.0)
[2019-08-11 06:15] LABS: Blood Urea Nitrogen 9 mg/dl (8-23)
[2019-08-11 07:58] LABS: Eosinophils % (Manual) 4 % (0-7); Lymphocytes % 13 % (15-49); Monocytes % (Manual) 10 % (1-12); Platelet Estimate NORMAL (NORMAL); RBC Morphology NORMAL (NORMAL); Segmented Neutrophils % 73 % (38-78)
[2019-08-11] MEDS: ESTRADIOL 1 MG TABLET PO SCH (08:27)
[2019-08-11] MEDS: GABAPENTIN 300 MG CAPSULE PO SCH (08:28)
[2019-08-11] MEDS: ASPIRIN 81 MG TAB.CHEW CHEWED SCH (08:29)
[2019-08-11] MEDS: CYANOCOBALAMIN (VITAMIN B-12) 500 MCG TABLET PO SCH (08:29)
[2019-08-11] MEDS: MULTIVIT,THER IRON,CA,FA & MIN 1 TABLET PO SCH (08:29)
[2019-08-11] MEDS: LEVOTHYROXINE 25 MCG TABLET PO SCH (08:29)
[2019-08-11] MEDS: SYMBICORT INH SCH (08:30)
[2019-08-11] MEDS: VENLAFAXINE 75 MG CAP.XL.24H PO SCH (08:30)
[2019-08-11] MEDS: FOLIC ACID 1 MG TABLET PO SCH (08:30)
[2019-08-11] MEDS: THIAMINE 100 MG TABLET PO SCH (08:31)
[2019-08-11] MEDS: 0.9 % SODIUM CHLORIDE 10 ML SYRINGE IV SCH (08:32)
[2019-08-11] MEDS: DOCUSATE SODIUM 100 MG CAPSULE PO SCH (10:11)
--- NOTE | 2019-08-11 10:22 | Discharge Summary ---
Medical - DS: Prov Patient information: Note initiated : 08/11/19 at 10:20 am Service Date, if different from initiated Date: [] Patient: Raven Collazo 69 y/o F admitted on 08/07/19 for Abdominal cramping, diarrhea, blood in stool. Chief Complaint: [] Date of admission: 08/07/19 14:50 Discharge date: 08/11/19 Primary care physician: Francie Murillo Consults: 08/07/19 Consult to Physician [CONS] Stat Comment: Consulting Provider: Nawaf Masters Reason For Exam: Physician to Consult 08/08/19 09:40 Consult to Physician [CONS] Routine Comment: Consulting Provider: Angela Dailey Reason For Exam: Physician to Consult Medical - DS: Meds - Discharge Medications Prescriptions: Aspirin 81 mg CHEWED DAILY #30 tab.chew Transmission Status: Pending to [facility] Active and Home Medications: Home Medications Albuterol Sulfate [Proair Respiclick] 90 mcg IH PRN PRN 03/27/16 [History Confirmed 08/07/19 Last Taken 03/21/19] Albuterol Sulfate [Ventolin] 2.5 mg NEB Q4HP PRN 03/27/16 [History Confirmed 08/07/19 Last Taken 03/21/19] Estradiol [Estrace] 1 mg PO DAILY 03/27/16 [History Confirmed 08/07/19 Last Taken 08/06/19] Levothyroxine [Synthroid] 25 mcg PO DAILY 03/27/16 [History Confirmed 08/07/19 Last Taken 08/06/19] Lisinopril [Zestril] 10 mg PO QDAY 03/27/16 [History Confirmed 08/07/19 Last Taken 08/06/19] QUEtiapine [Seroquel] 150 mg PO HS 03/27/16 [History Confirmed 08/07/19 Last Taken 08/06/19] Venlafaxine [Effexor Xr] 225 mg PO DAILY 03/27/16 [History Confirmed 08/07/19 Last Taken 08/06/19] fluticasone propionate 50 mcg/actuation nasal spray,suspension 2 spray INTRANASAL QDAY #16 g 07/14/17 [Rx Confirmed 08/08/19 Last Taken 08/06/19] montelukast 10 mg tablet 10 mg PO QHS 07/14/17 [History Confirmed 08/07/19 Last Taken 08/06/19] gabapentin 300 mg capsule 300 mg PO QID cap 11/24/17 [History Confirmed 08/07/19 Last Taken 08/06/19] budesonide-formoterol HFA 160 mcg-4.5 mcg/actuation aerosol inhaler 2 puff INHALATION BID #10.2 g 10/14/18 [Rx Confirmed 08/07/19 Last Taken 03/20/19] clonazePAM [KlonoPIN] 0.5 mg PO HS PRN 08/07/19 [History Confirmed 08/07/19 Last Taken 08/06/19] Aspirin 81 mg CHEWED DAILY #30 tab.chew 08/11/19 [Rx Last Taken Unknown] Medical - DS: Hosp Hospital Course: Discharge diagnosis * Acute ischemic colitis-clinical improved bowel rest/supportive management. Tolerated diet advancement. Discharging home. Recommend mesenteric angiogram in 1 to [address] angiogram avoided during hospitalization in light of mild SILVINA. * Mild SILVINA-resolved creatinine at baseline. * Diarrhea with volume depletion-secondary to ischemic colitis. Resolved * Hypotension-resolved with crystalloids * Abdominal pain resolved * Reactive disease continue home dose bronchodilators * Anxiety disorder continue clonazepam/Effexor/Seroquel * Hypertension meds on hold until systolics over 140 * Hypothyroidism continue thyroxine * Neuropathy continue gabapentin * Chronic pain on home dose hydromorphone Brief hospital course Ms. Collazo is a 69 year old F with a history of hypertension/reactive disease of anxiety disorder who presents to the ER along with his friend after experiencing multiple episodes of watery diarrhea that started around 3 AM. Symptoms associated with increased abdominal cramping. She was recently treated with cip rofloxacin for 7 days for UTI. She denies fever chills but endorses to blood in stool this morning. She carries a history of ischemic colitis and she was admitted last year and underwent colonoscopy. She denies being on blood thinner. She denies weight loss/change in stool caliber/lightheadedness dizziness. She denies changes in medications. Initial work-up in the ER was consistent with diverticulitis on abdominal CT along with elevated creatinine from volume depletion. Patient had not had a bowel movement since arrival to the ER. Stool studies could not be performed. Patient was started on antibiotic coverage for diverticulitis. Hospitalist service was consulted after crystalloid administration At the time of evaluation patient is alert and oriented. She feels a lot better. Denies chest palpitation, fever, rash. Endorses to history as above. She lives alone at [facility]. 08/08-past a few bloody clots however diarrhea improved. No overnight fever chills. Abdominal pain discomfort improved. Currently on clears. On antibiotic coverage. Blood pressure dropped from 160s to low 80s. Antihypertensives on hold. White count 6000. Creatinine 1.5. Now on room air. Sitting on chair. Stool studies pending. 08/09-improved diarrhea/abdominal cramping. Ischemic colitis per surgery. Antibiotics discontinued. Continue with diet advancement. Advance to full liq uid followed by low residue diet. No overnight fever chills. White count normal. Creatinine improved to 1.2. 08/10 -improved abdominal cramping/pain. No further episode of bloody stool. Tolerating clears and advancing to low residue diet. No fever chills. Off antibiotics. Start aspirin 81 mg. No overnight fever chills or concerns per staff. Anticipate discharge in 24 hours pending clinical improvement and advancement of diet 08/11-patient doing well. No overnight events. No concerns per staff. Tolerating diet. No further bloody bowels or fever or abdominal pain. Discharging with advised to continue gradual diet advancement. Recommend follow-up with primary care physician and Mesenteric CT angiogram in 1 to 2 weeks. Discharge instructions below. Discharge diagnosis: . - Time Spent with Patient Total time spent providing and/or coordinating discharge services: Greater than 30 minutes Medical - DS: Exam - Constitutional Vitals: Vital Signs Temp Pulse Pulse Resp BP BP Pulse Ox 08/11/19 08:00 98.1 F 81 18 176/87 96 08/11/19 04:02 98.4 F 68 16 162/95 95 08/10/19 23:26 98.0 F 78 16 164/94 92 08/10/19 22:35 81 16 95 08/10/19 18:59 98.7 F 16 173/86 95 08/10/19 17:00 98.1 F 80 20 179/86 96 08/10/19 12:00 97.8 F 95 H 18 128/65 90 Intake and Output 08/10/19 08/11/19 08/11/19 21:59 05:59 13:59 Intake Total 240 800 Balance 240 800 Intake: Oral 240 800 Other: Meal Dinner Percent of Meal Consumed 100% Feeding Ability Independent # Voids 1 1 Weight 199 lb 1.6 oz Medical - DS: Data Labs on day of discharge: Labs from last 24 hours 08/11/19 08/11/19 04:30 04:30 WBC 5.1 RBC 4.04 Hgb 12.0 Hct 37.4 MCV 92.6 MCH 29.8 MCHC 32.2 RDW 13.3 Plt Count 175 MPV 8.4 Total Counted 100 Seg Neutrophils % 73 Band Neutrophils % Not Reportable Lymphocytes % 13 L Monocytes % (Manual) 10 Eosinophils % (Manual) 4 Platelet Estimate Normal RBC Morphology Normal Sodium 139 Potassium 3.9 Chloride 102 Carbon Dioxide 26 Anion Gap 11.0 BUN 9 Creatinine 1.1 GFR Calculation 50 Glucose 93 Uric Acid 4.8 Calcium 8.5 L Phosphorus 2.6 L Magnesium 1.7 Total Bilirubin 0.2 Direct Bilirubin < 0.2 GGT 13 AST 18 ALT 11 Alkaline Phosphatase 63 Lactate Dehydrogenase 223 Total Protein 6.3 Albumin 3.3 Globulin 3.0 Albumin/Globulin Ratio 1.1 Triglycerides 165 H Preliminary micro results at discharge 08/07/19 13:47 Blood Culture - Preliminary Blood 08/07/19 13:47 Blood Culture - Preliminary Blood Medical - DS: A/P - Patient/Caregiver Discharge Instructions Activity: increase activity as tolerated Diet: Regular Diet Additional Instructions: Mesenteric CT angiogram in 1 week Follow primary care physician in 5- 7 days Return to ER if abdominal pain nausea vomiting or bloody stool Prescriptions: Aspirin 81 mg CHEWED DAILY #30 tab.chew Transmission Status: Pending to [email or web address] 2005 - Problem Maintenance (1) Diverticulitis Status: Acute - Follow up Plan Follow up with: Mercedes Lopez ARNP [Nurse Practitioner] - Francie Murillo ARNP [Primary Care Provider] - Disposition: Home, Self-Care Prognosis: Fair Rehab Potential: Fair I certify that the patient requires SNF services: No Overall status at discharge: patient is progressing back to baseline Medical - DS: Qual - VTE Deep Vein Thrombosis/Pulmonary Embolism Present on Admission: No
== END 2019-08-11 12:25 | disposition home or self-care (01) | DRG 393 ==
LOC: ED 10:18 → MEDSUR 14:50
PROVIDERS: ADMIT Internal Medicine; ATTEND Internal Medicine

== ENCOUNTER 2024-11-10 16:12 | Inpatient (IN) ==
[2024-11-10 16:52] LABS: Basophils # (Auto) 0.02 K/mcL (0.00-0.30); Basophils % (Auto) 0.2 % (0.0-2.0); Eosinophils # (Auto) 0.03 K/mcL (0.00-0.70); Eosinophils % (Auto) 0.3 % (0.0-7.0); Hematocrit 39.8 % (34.1-44.9); Hemoglobin 11.1 g/dL (11.2-15.7); Lymphocytes # (Auto) 1.12 K/mcL (1.50-4.80); Lymphocytes % (Auto) 11.6 % (15.5-49.0); Mean Cell Volume 109.9 fL (80.0-100.0); Mean Corpuscular HGB Conc 27.9 g/dL (31.0-36.0); Monocytes # (Auto) 0.83 K/mcL (0.10-0.90); Monocytes % (Auto) 8.6 % (1.0-12.0); Neutrophils % (Auto) 78.8 % (38.0-78.0); Platelet Count 293 K/mcL (140-440); RBC 3.62 M/mcL (3.59-5.38); Red Cell Distribution Width 15.7 % (11.5-14.5); WBC 9.7 K/mcL (4.5-11.0)
[2024-11-10 17:13] LABS: ALT/SGPT 23 U/L (<40); AST/SGOT 22 U/L (<32); Albumin/Globulin Ratio 1.4 (1.0-2.3); Alkaline Phosphatase 72 U/L (39-117); Bilirubin,Total 0.4 mg/dL (0.1-1.0); Blood Urea Nitrogen 24 mg/dL (8-23); Calcium 8.7 mg/dL (8.6-10.4); Carbon Dioxide 20 mmol/L (22-30); Chloride 107 mmol/L (96-108); Globulin 2.8 gm/dL (2.2-3.7); Glomerular Filtration Rate 49; Glucose 121 mg/dL (70-105); Potassium 4.2 mmol/L (3.3-5.1); Sodium 143 mmol/L (133-145)
[2024-11-10] MEDS: FUROSEMIDE 40 MG/4 ML VIAL IV ONE (17:56)
[2024-11-10] MEDS: ASPIRIN 81 MG TAB.CHEW CHEWED ONE (17:56)
[2024-11-10] MEDS ORDERED: METOCLOPRAMIDE 10 MG/2 ML VIAL IV PRN (19:36)
[2024-11-10] MEDS ORDERED: POTASSIUM CHLORIDE 40 MEQ in DEXTROSE 5% IN WATER 500 ML IV PRN (19:36)
[2024-11-10] MEDS ORDERED: MAGNESIUM SULFATE 2 GM/50 ML BAG IV PRN (19:36)
[2024-11-10] MEDS ORDERED: IPRATROPIUM/ALBUTEROL 3 ML AMPUL.NEB NEB PRN (19:36)
[2024-11-10] MEDS ORDERED: POLYETHYLENE GLYCOL 3350 17 GM PACKET PO PRN (19:36)
[2024-11-10] MEDS ORDERED: METOPROLOL TARTRATE 5 MG/5 ML VIAL IV PRN (19:36)
[2024-11-10] MEDS ORDERED: SENNOSIDES 1 TABLET PO PRN (19:36)
[2024-11-10] MEDS ORDERED: ONDANSETRON 4 MG/2 ML VIAL IV PRN (19:36)
[2024-11-10] MEDS ORDERED: ACETAMINOPHEN 325 MG TABLET PO PRN (19:36)
[2024-11-10] MEDS ORDERED: DILTIAZEM 125 MG in DEXTROSE 5% IN WATER 100 ML IV PRN (19:36)
[2024-11-10] MEDS ORDERED: POTASSIUM CHLORIDE 20 MEQ TABLET PO PRN ×2 (19:36)
[2024-11-10] MEDS: METOPROLOL TARTRATE 25 MG TABLET PO SCH (20:11)
[2024-11-10] MEDS: APIXABAN 5 MG TABLET PO SCH (20:13)
[2024-11-10] MEDS: DOCUSATE SODIUM 100 MG CAPSULE PO SCH (20:14)
[2024-11-10] MEDS ORDERED: clonazePAM 0.5 MG TABLET PO PRN (21:51)
[2024-11-10] MEDS: DILTIAZEM 120 MG CAP.XL.24H PO SCH (21:51)
[2024-11-10] MEDS: QUEtiapine 100 MG TABLET PO SCH (21:52)
[2024-11-10] MEDS: LEVOTHYROXINE 25 MCG TABLET PO SCH (21:53)
[2024-11-10] MEDS: NITROGLYCERIN 1 GM OINT.TOP TD SCH (22:30)
[2024-11-11 06:55] LABS: ALT/SGPT 19 U/L (<40); AST/SGOT 17 U/L (<32); Albumin 3.7 gm/dL (3.2-5.2); Albumin/Globulin Ratio 1.5 (1.0-2.3); Alkaline Phosphatase 68 U/L (39-117); Bilirubin,Direct < 0.2 mg/dL (0-0.3); Bilirubin,Total 0.4 mg/dL (0.1-1.0); Blood Urea Nitrogen 22 mg/dL (8-23); Calcium 8.7 mg/dL (8.6-10.4); Carbon Dioxide 25 mmol/L (22-30); Chloride 104 mmol/L (96-108); Globulin 2.5 gm/dL (2.2-3.7); Glomerular Filtration Rate 44; Glucose 102 mg/dL (70-105); Lactate Dehydrogenase 225 U/L (135-225); Phosphorous 4.7 mg/dL (2.5-4.5); Potassium 4.3 mmol/L (3.3-5.1); Sodium 142 mmol/L (133-145); Triglycerides 145 mg/dL (<150); Uric Acid 6.6 mg/dL (2.5-8.0)
[2024-11-11] MEDS: CARVEDILOL 3.125 MG TABLET PO SCH (08:31)
[2024-11-11] MEDS: FUROSEMIDE 40 MG/4 ML VIAL IV SCH (08:31)
[2024-11-11] MEDS: ATORVASTATIN 40 MG TABLET PO SCH (20:43)
[2024-11-11] MEDS: VENLAFAXINE 75 MG CAP.XL.24H PO SCH (20:46)
[2024-11-11] MEDS: METOPROLOL TARTRATE 5 MG/5 ML VIAL IV SCH (23:28)
[2024-11-12] MEDS: METOPROLOL TARTRATE 5 MG/5 ML VIAL IV ONE (01:10)
[2024-11-12 06:21] LABS: ALT/SGPT 19 U/L (<40); AST/SGOT 15 U/L (<32); Albumin 3.9 gm/dL (3.2-5.2); Albumin/Globulin Ratio 1.3 (1.0-2.3); Alkaline Phosphatase 80 U/L (39-117); Bilirubin,Direct 0.2 mg/dL (<0.3); Bilirubin,Total 0.4 mg/dL (0.1-1.0); Blood Urea Nitrogen 41 mg/dL (8-23); Carbon Dioxide 26 mmol/L (22-30); Chloride 100 mmol/L (96-108); Globulin 2.9 gm/dL (2.2-3.7); Glomerular Filtration Rate 36; Glucose 129 mg/dL (70-105); Lactate Dehydrogenase 209 U/L (135-225); Phosphorous 4.7 mg/dL (2.5-4.5); Potassium 3.9 mmol/L (3.3-5.1); Sodium 142 mmol/L (133-145); Triglycerides 115 mg/dL (<150); Uric Acid 8.4 mg/dL (2.5-8.0)
[2024-11-12] MEDS: DILTIAZEM 240 MG CAP.XL.24H PO ONE (10:17)
[2024-11-12] MEDS: METHOTREXATE SODIUM 2.5 MG TABLET PO SCH (11:08)
[2024-11-13 06:33] LABS: ALT/SGPT 15 U/L (<40); AST/SGOT 14 U/L (<32); Albumin 3.7 gm/dL (3.2-5.2); Albumin/Globulin Ratio 1.4 (1.0-2.3); Alkaline Phosphatase 76 U/L (39-117); Bilirubin,Direct 0.2 mg/dL (<0.3); Bilirubin,Total 0.4 mg/dL (0.1-1.0); Blood Urea Nitrogen 49 mg/dL (8-23); Calcium 8.7 mg/dL (8.6-10.4); Carbon Dioxide 24 mmol/L (22-30); Chloride 101 mmol/L (96-108); Globulin 2.7 gm/dL (2.2-3.7); Glomerular Filtration Rate 40; Glucose 125 mg/dL (70-105); Lactate Dehydrogenase 198 U/L (135-225); Phosphorous 4.7 mg/dL (2.5-4.5); Potassium 3.9 mmol/L (3.3-5.1); Sodium 139 mmol/L (133-145); Triglycerides 87 mg/dL (<150); Uric Acid 8.8 mg/dL (2.5-8.0)
[2024-11-13] MEDS: DIGOXIN 500 MCG/2 ML AMPUL IV SCH ×3 (08:25→14:24)
[2024-11-13] MEDS ORDERED: DIGOXIN 500 MCG/2 ML AMPUL IV SCH ×3 (08:30→14:30)
[2024-11-13] MEDS: DILTIAZEM 180 MG CAP.XL.24H PO SCH (09:28)
[2024-11-13] MEDS ORDERED: DIGOXIN 500 MCG/2 ML AMPUL IV ONE (20:00)
[2024-11-14 07:18] LABS: Digoxin 1.6 ng/mL
[2024-11-14 08:40] VITALS: TEMP 97.7
[2024-11-14 13:57] VITALS: O2SAT 96
== END 2024-11-14 13:22 | disposition home or self-care (01) | DRG 291 ==
LOC: ED 16:12 → ICU 19:34
PROVIDERS: ADMIT Internal Medicine; ATTEND Internal Medicine